=== PATIENT | female | born 1935 | race Caucasian/White ===

== ENCOUNTER 2017-09-30 17:13 | Emergency (ER) | payer MEDICARE, OTHER ==
[2017-09-30] MEDS ORDERED: Bacitracin Oint 1 GM U/D Packet TOP ONE (18:00)
--- NOTE | 2017-09-30 18:01 | EDM.PDOC ---
ED HPI GENERAL MEDICAL PROBLEM - General Chief Complaint: Laceration Stated Complaint: CUT HAND WHILE GETTING DISHES OUT OF CUPBOARD Time Seen by Provider: 09/30/17 17:55 Source of Information: Reports: Patient, Family, RN Notes Reviewed History Limitations: Reports: No Limitations - History of Present Illness INITIAL COMMENTS - FREE TEXT/NARRATIVE: 82-year-old female presents emergency department today with complaint of lacerations to both hands unfortunately she injured herself when a couple dishes broke in her hands she has lacerations on the left digit #5 and right palm Hand Pain Score (Numeric/FACES): 5 - Related Data Allergies Allergy/AdvReac Type Severity Reaction Status Date / Time No Known Allergies Allergy Verified 09/30/17 17:39 Home Meds: Home Meds Aspirin [Adult Aspirin] 81 mg PO DAILY 09/30/17 [History] Cyanocobalamin (Vitamin B-12) [Vitamin B-12] 100 mcg PO DAILY 09/30/17 [History] Doxepin HCl [Doxepin] 10 mg PO BEDTIME 09/30/17 [History] Metoprolol Succinate [Toprol XL 100mg] 100 mg PO BEDTIME 09/30/17 [History] Simvastatin [Zocor] 40 mg PO BEDTIME 09/30/17 [History] Triamterene/Hydrochlorothiazid [Triamterene-HCTZ 37.5-25 MG] 1 tab PO DAILY [History] Past Medical History HEENT History: Reports: Cataract Cardiovascular History: Reports: Heart Murmur, High Cholesterol, Hypertension Gastrointestinal History: Reports: Cholelithiasis Genitourinary History: Reports: Other (See Below) Other Genitourinary History: urethitis [employer]ENTICE History: Reports: Psychiatric History: Reports: Other (See Below) Other Psychiatric History: stress - Past Surgical History HEENT Surgical History: Reports: Cataract Surgery GI Surgical History: Reports: Cholecystectomy Female Surgical History: Reports: Tubal Ligation Social & Family History - Tobacco Use Smoking Status *Q: Never Smoker - Caffeine Use Caffeine Use: Reports: Coffee - Recreational Drug Use Recreational Drug Use: No ED ROS GENERAL - Review of Systems Review Of Systems: See Below Constitutional: Reports: No Symptoms Musculoskeletal: Reports: No Symptoms Skin: Reports: Wound Neurological: Reports: Numbness (Digit #2 right hand) ED EXAM, SKIN/RASH Exam: See Below Text/Narrative:: Examination hands full range of motion of all digits radial pulses +2 bilaterally she has a 1.5 cm laceration palmar surface on the right hand, there is a half centimeter laceration on digit #5 palmar surface over the proximal phalange area sensation is intact, complains of numbness digit #2 right hand however a sensation appears to be normal Exam Limited By: No Limitations General Appearance: Alert, WD/WN, No Apparent Distress ED SKIN PROCEDURES - Laceration/Wound Repair Hand Lac/Wound length In cm: 1 (Left hand) Appearance: Subcutaneous Distal NVT: Neuro & Vascular Intact, No Tendon Injury Anesthetic Type: Digital Local Anesthesia - Lidocaine (Xylocaine): 1% Plain Local Anesthetic Volume: 2cc Skin Prep: Saline Saline Irrigation (cc's): 60 Exploration/Debridement/Repair: Wound Explored, In a Bloodless Field, Explored to Base Closed with: Sutures Suture Size: 4-0 # of Sutures: 1 Suture Type: Interrupted Sterile Dressing Applied: Nurse Tetanus Status Addressed: Yes Complications: No Right Hand Lac/Wound length In cm: 2 Appearance: Subcutaneous Distal NVT: Neuro & Vascular Intact, No Tendon Injury Anesthetic Type: Local Local Anesthesia - Lidocaine (Xylocaine): 1% Plain Local Anesthetic Volume: 2cc Skin Prep: Saline Saline Irrigation (cc's): 60 Exploration/Debridement/Repair: Wound Explored, In a Bloodless Field, Explored to Base Closed with: Sutures Suture Size: 4-0 # of Sutures: 3 Suture Type: Nylon, Interrupted Suture Size: 4-0 # of Sutures: 2 Repaired with: Vicryl Sterile Dressing Applied: Nurse Tetanus Status Addressed: Yes Complications: No Course - Vital Signs Last Recorded V/S: Last Vital Signs Temp 97.1 F 09/30/17 17:37 Pulse 52 L 09/30/17 17:37 Resp 15 09/30/17 17:37 BP 170/72 H 09/30/17 17:34 Pulse Ox 94 L 09/30/17 17:37 - Orders/Labs/Meds Orders: Active Orders 24 hr Category Date Time Status Hand 2V Rt [CR] Stat Exams 09/30/17 17:59 Taken Meds: Medications Discontinued Medications Generic Name Dose Route Start Last Admin Trade Name Freq PRN Reason Stop Dose Admin Bacitracin 2 dose 09/30/17 18:00 09/30/17 18:16 Bacitracin Oint 1 Gm TOP 09/30/17 18:01 2 dose ONETIME ONE Administration Lidocaine HCl 5 ml 09/30/17 18:00 09/30/17 18:17 Xylocaine-Mpf 1% INJECT 09/30/17 18:01 5 ml ONETIME ONE Administration Departure - Departure Time of Disposition: 19:12 Disposition: Home, Self-Care 01 Condition: Good Clinical Impression: Hand laceration Qualifiers: Encounter type: initial encounter Foreign body presence: without foreign body Laterality: unspecified laterality Qualified Code(s): S61.419A - Laceration without foreign body of unspecified hand, initial encounter - Discharge Information Referrals: Sophia Colon MD [Primary Care Provider] - Forms: ED Department Discharge Additional Instructions: Suture removal in 10 days, follow wound care instruction sheet, call return to the emergency department worsening of symptoms - My Orders Last 24 Hours: My Active Orders 09/30/17 17:59 Hand 2V Rt [CR] Stat - Assessment/Plan Last 24 Hours: My Active Orders 09/30/17 17:59 Hand 2V Rt [CR] Stat Plan: Assessment Acuity = acute Site and laterality = multiple lacerations on palmar surface of right and left hand Etiology = secondary trauma Manifestations = none Location of injury = Home Lab values = right hand x-rayI did review films myself I cannot appreciate any acute process, the official read from radiology is pending Plan Suture removal in 10 days, follow up with primary care for suture removal follow wound care instruction sheet This note was dictated using [employer] voice recognition software please call with any questions on syntax or grammar.
--- NOTE | 2017-10-01 08:40 | CR ---
Hand 2V Rt CLINICAL HISTORY: Possible foreign body FINDINGS: There is no acute fracture or dislocation of the hand. There is soft tissue swelling of the index finger. No radiopaque foreign body is seen. 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 Impression: Soft tissue swelling No radiopaque foreign body
== END 2017-09-30 19:33 | disposition home or self-care (01) ==
LOC: JP.ED 17:13
DX: S61.411A Laceration without foreign body of right hand, initial encounter (principal); S61.412A Laceration without foreign body of left hand, initial encounter; I10 Essential (primary) hypertension; Z79.82 Long term (current) use of aspirin; W26.9XXA Contact with unspecified sharp object(s), initial encounter
CPT/HCPCS: 12002; 73120-26-RT; 73120-RT; 99283-25

== ENCOUNTER 2018-04-03 14:50 | Emergency (ER) | payer MEDICARE, OTHER ==
[2018-04-03] MEDS ORDERED: Metoprolol Tartrate 5 MG/5 ML SDV IVPUSH ONE ×3 (15:02→15:33)
[2018-04-03] MEDS ORDERED: Aspirin 81 MG Tab.Chew PO ONE (15:04)
[2018-04-03] MEDS: Sodium Chloride 0.9% 10 ML Syringe FLUSH PRN ×2 (15:19→15:20)
[2018-04-03] MEDS ORDERED: Potassium Chloride 20 MEQ in Premix Bag 1 BAG IV ONE (15:35)
[2018-04-03] MEDS ORDERED: Potassium Chloride 10% 20 MEQ/15 ML Soln 15 ML UD Cup PO ONE (15:36)
[2018-04-03] MEDS ORDERED: Metoprolol Tartrate 50 MG Tab PO ONE (15:55)
[2018-04-03] MEDS ORDERED: Potassium Chloride 20 MEQ, Lidocaine 1% 2 ML in Sodium Chloride 0.9% 100 ML IV ONE (16:00)
--- NOTE | 2018-04-03 17:43 | EDM.PDOC ---
ED HPI GENERAL MEDICAL PROBLEM - General Chief Complaint: Chest Pain Stated Complaint: CHEST PAINS Time Seen by Provider: 04/03/18 15:03 Source of Information: Reports: Patient History Limitations: Reports: No Limitations - History of Present Illness INITIAL COMMENTS - FREE TEXT/NARRATIVE: This lady complains of chest pain for 45 minutes. Initially her pain was 7-1/2- 8 out of 10. Now it's much less but she describes it as" bad enough"she denies history of atrial fibrillation but does feel that her heart is racing. She has hypertension denies diabetes. There is some heart disease in her family including sister and mother. She had 2 brothers of cancer. She describes the pain as sort of a vague dull heaviness on her chest sort of like her small cat laying on her chest. Mid-Sternal Chest Pain Score (Numeric/FACES): 7 - Related Data Allergies Allergy/AdvReac Type Severity Reaction Status Date / Time No Known Allergies Allergy Verified 09/30/17 17:39 Home Meds: Home Meds Aspirin [Adult Aspirin] 81 mg PO DAILY 09/30/17 [History] Cyanocobalamin (Vitamin B-12) [Vitamin B-12] 100 mcg PO DAILY 09/30/17 [History] Doxepin HCl [Doxepin] 10 mg PO BEDTIME 09/30/17 [History] Metoprolol Succinate [Toprol XL 100mg] 100 mg PO BEDTIME 09/30/17 [History] Simvastatin [Zocor] 40 mg PO BEDTIME 09/30/17 [History] Triamterene/Hydrochlorothiazid [Triamterene-HCTZ 37.5-25 MG] 1 tab PO DAILY [History] Past Medical History HEENT History: Reports: Cataract Cardiovascular History: Reports: Heart Murmur, High Cholesterol, Hypertension Gastrointestinal History: Reports: Cholelithiasis Genitourinary History: Reports: Other (See Below) Other Genitourinary History: urethitis [employer] LEAD History: Reports: Psychiatric History: Reports: Other (See Below) Other Psychiatric History: stress - Infectious Disease History Infectious Disease History: Reports: Chicken Pox, Measles, Mumps - Past Surgical History HEENT Surgical History: Reports: Cataract Surgery GI Surgical History: Reports: Cholecystectomy Female Surgical History: Reports: Tubal Ligation Social & Family History - Tobacco Use Smoking Status *Q: Never Smoker - Caffeine Use Caffeine Use: Reports: Coffee - Recreational Drug Use Recreational Drug Use: No ED ROS GENERAL - Review of Systems Review Of Systems: See Below Constitutional: Reports: No Symptoms HEENT: Reports: No Symptoms Respiratory: Reports: No Symptoms Cardiovascular: Reports: Chest Pain, Palpitations Endocrine: Reports: No Symptoms GI/Abdominal: Reports: No Symptoms : Reports: No Symptoms Musculoskeletal: Reports: No Symptoms Skin: Reports: No Symptoms ED EXAM, GENERAL - Physical Exam Exam: See Below Exam Limited By: No Limitations General Appearance: Alert, WD/WN, No Apparent Distress Eye Exam: Bilateral Eye: Normal Inspection Throat/Mouth: Normal Inspection Neck: Normal Inspection Respiratory/Chest: No Respiratory Distress, Lungs Clear Cardiovascular: Normal Peripheral Pulses, Tachycardia, Irregularly Irregular Peripheral Pulses: 2+: Radial (L), Radial (R) GI/Abdominal: Non-Tender Extremities: Normal Inspection Neurological: Alert, Oriented, CN II-XII Intact, Normal Cognition Psychiatric: Normal Affect, Normal Mood Skin Exam: Warm, Intact Course - Vital Signs Last Recorded V/S: Last Vital Signs Temp 36.4 C 04/03/18 15:20 Pulse 54 L 04/03/18 18:12 Resp 18 04/03/18 18:12 BP 134/52 L 04/03/18 18:12 Pulse Ox 98 04/03/18 18:12 - Orders/Labs/Meds Orders: Active Orders 24 hr Category Date Time Status EKG Documentation Completion [RC] ASDIRECTED Care 04/03/18 15:04 Active EKG Documentation Completion [RC] ASDIRECTED Care 04/03/18 16:32 Active Sodium Chloride 0.9% [Saline Flush] Med 04/03/18 15:04 Active 10 ml FLUSH ASDIRECTED PRN Saline Lock Insert [OM.PC] Urgent Oth 04/03/18 15:04 Ordered EKG 12 Lead [EK] Urgent Ther 04/03/18 15:04 Ordered EKG 12 Lead [EK] Urgent Ther 04/03/18 16:32 Ordered Medication Orders Sodium Chloride (Saline Flush) 10 ml FLUSH ASDIRECTED PRN PRN Reason: Keep Vein Open Last Admin: 04/03/18 15:20 Dose: 10 ml Admin: 04/03/18 15:19 Dose: 10 ml Labs: Laboratory Tests 04/03/18 04/03/1804/03/19 Range/Units 15:09 15:09 15:09 WBC 8.4 (4.5-11.0) K/uL RBC 4.65 (3.30-5.50) M/uL Hgb 15.5 H (12.0-15.0) g/dL Hct 44.6 (36.0-48.0) % MCV 96 (80-98) fL MCH 33 H (27-31) pg MCHC 35 (32-36) % Plt Count 181 (150-400) K/uL Neut % (Auto) 61 (36-66) % Lymph % (Auto) 26 (24-44) % [place] % (Auto) 9 H (2-6) % Eos % (Auto) 4 (2-4) % Baso % (Auto) 1 (0-1) % PT 10.1 (9.5-12.0) sec INR 0.91 (0.80-1.20) Sodium 133 L (140-148) mmol/L Potassium 2.9 L* (3.6-5.2) mmol/L Chloride 93 L (100-108) mmol/L Carbon Dioxide 30 (21-32) mmol/L Anion Gap 12.9 (5.0-14.0) mmol/L BUN 16 (7-18) mg/dL Creatinine 1.0 (0.6-1.0) mg/dL Est Cr Clr Drug Dosing 43.63 mL/min Estimated GFR (MDRD) 53 L (>60) Glucose 106 (74-106) mg/dL Calcium 9.4 (8.5-10.1) mg/dL Total Bilirubin 0.9 (0.2-1.0) mg/dL AST 31 (15-37) U/L ALT 32 (12-78) U/L Alkaline Phosphatase 76 (46-116) U/L Troponin I < 0.017 (0.000-0.056) ng/mL Total Protein 7.8 (6.4-8.2) g/dL Albumin 4.1 (3.4-5.0) g/dL Globulin 3.7 H (2.3-3.5) g/dL Albumin/Globulin Ratio 1.1 L (1.2-2.2) Free T4 (0.76-1.46) ng/dL TSH, Ultra Sensitive (0.358-3.740) uIU/mL 04/03/18 04/03/18 Range/Units 17:43 17:56 WBC (4.5-11.0) K/uL RBC (3.30-5.50) M/uL Hgb (12.0-15.0) g/dL Hct (36.0-48.0) % MCV (80-98) fL MCH (27-31) pg MCHC (32-36) % Plt Count (150-400) K/uL Neut % (Auto) (36-66) % Lymph % (Auto) (24-44) % [place] % (Auto) (2-6) % Eos % (Auto) (2-4) % Baso % (Auto) (0-1) % PT (9.5-12.0) sec INR (0.80-1.20) Sodium (140-148) mmol/L Potassium 3.9 (3.6-5.2) mmol/L Chloride (100-108) mmol/L Carbon Dioxide (21-32) mmol/L Anion Gap (5.0-14.0) mmol/L BUN (7-18) mg/dL Creatinine (0.6-1.0) mg/dL Est Cr Clr Drug Dosing mL/min Estimated GFR (MDRD) (>60) Glucose (74-106) mg/dL Calcium (8.5-10.1) mg/dL Total Bilirubin (0.2-1.0) mg/dL AST (15-37) U/L ALT (12-78) U/L Alkaline Phosphatase (46-116) U/L Troponin I < 0.017 (0.000-0.056) ng/mL Total Protein (6.4-8.2) g/dL Albumin (3.4-5.0) g/dL Globulin (2.3-3.5) g/dL Albumin/Globulin Ratio (1.2-2.2) Free T4 1.08 (0.76-1.46) ng/dL TSH, Ultra Sensitive 2.336 (0.358-3.740) uIU/mL Meds: Medications Generic Name Dose Route Start Last Admin Trade Name Freq PRN Reason Stop Dose Admin Sodium Chloride 10 ml 04/03/18 15:04 04/03/18 15:20 Saline Flush FLUSH 10 ml ASDIRECTED PRN Administration Keep Vein Open Discontinued Medications Generic Name Dose Route Start Last Admin Trade Name Amando PRN Reason Stop Dose Admin Aspirin 324 mg 04/03/18 15:04 04/03/18 15:13 Aspirin PO 04/03/18 15:05 324 mg ONETIME ONE Administration Potassium Chloride 20 meq/ 112 mls @ 56 mls/hr 04/03/18 16:00 04/03/18 15:59 Lidocaine HCl 2 ml/ Sodium IV 04/03/18 17:59 56 mls/hr Chloride ONETIME ONE Administration Metoprolol Tartrate 5 mg 04/03/18 15:02 04/03/18 15:06 Lopressor IVPUSH 04/03/18 15:03 5 mg ONETIME ONE Administration Metoprolol Tartrate 5 mg 04/03/18 15:05 04/03/18 15:19 Lopressor IVPUSH 04/03/18 15:06 5 mg ONETIME ONE Administration Metoprolol Tartrate 5 mg 04/03/18 15:33 04/03/18 15:43 Lopressor IVPUSH 04/03/18 15:34 5 mg ONETIME ONE Administration Metoprolol Tartrate 50 mg 04/03/18 15:55 04/03/18 15:59 Lopressor PO 04/03/18 15:56 50 mg ONETIME ONE Administration Potassium Chloride 40 meq 04/03/18 15:36 04/03/18 16:02 Potassium Chloride Solution PO 04/03/18 15:37 40 meq ONETIME ONE Administration - Re-Assessments/Exams Free Text/Narrative Re-Assessment/Exam: 04/03/18 17:45 Initial EKG shows atrial fibrillation with rapid ventricular response. There appears to be ST depression in lateral leads 1-2 mm. LVH criteria At the time I saw her an IV started been established. Her pain is fairly mild at that time and she is otherwise hemodynamically stable. We don't know how long she's been in atrial fibrillation so I don't think there is any indication for a cardioversion. She's already taking metoprolol so she was given metoprolol 5 mg IV 3. This brought the heart rate down to approximately 100- 110. She received metoprolol 50 mg orally. After about an hour or so she converted to a sinus rhythm. The ST changes appeared to have mostly resolved. Potassium came back 2.9. She was given 40 mEq orally and then she received 20 mEq IV over 2 hours. We will do a three-hour troponin to be drawn at 1800 as well as repeat potassium. Also ordered TSH and T4. Free Text/Narrative Re-Assessment/Exam: 04/03/18 19:09 Patient is now back in sinus rhythm running in the 50s and 60s. She has a chads score of 4 which correlates to a 4% yearly risk of a thromboembolic event if she had continuous atrial fibrillation. I discussed this with her as and also the risk of anticoagulation in the bleeds and so forth and I don't think that there is any need right now to even consider anticoagulation. She'll need to follow-up with her doctor soon we discussed potassium and whether or not she needs any more heart workup for ischemia and so forth. She does say that about 10 years ago she had some extensive cardiac workup after she had a syncopal episode. Departure - Departure Time of Disposition: 19:10 Disposition: Home, Self-Care 01 Condition: Fair Clinical Impression: Atrial fibrillation with rapid ventricular response, Chest pain, Hypokalemia Referrals: PCP,None [Primary Care Provider] - Forms: ED Department Discharge Additional Instructions: Increase your metoprolol XL to 100 mg in the morning and 50 mg at night. You already had the dose for tonight. Your potassium is low which might have caused the atrial fibrillation. Take about 1/2 teaspoon of salt substitute daily this is the same potassium chloride which is found in medications. Be sure your doctor knows you're taking this. Plan to see your DrAnne Marie soon and bring all your labs and EKGs. Return to the ER at any time if you notice any racing heartbeat, sustained rapid heartbeat or chest pain. - My Orders Last 24 Hours: My Active Orders 04/03/18 15:04 EKG Documentation Completion [RC] ASDIRECTED Sodium Chloride 0.9% [Saline Flush] 10 ml FLUSH ASDIRECTED PRN Saline Lock Insert [OM.PC] Urgent EKG 12 Lead [EK] Urgent 04/03/18 16:32 EKG Documentation Completion [RC] ASDIRECTED EKG 12 Lead [EK] Urgent - Assessment/Plan Last 24 Hours: My Active Orders 04/03/18 15:04 EKG Documentation Completion [RC] ASDIRECTED Sodium Chloride 0.9% [Saline Flush] 10 ml FLUSH ASDIRECTED PRN Saline Lock Insert [OM.PC] Urgent EKG 12 Lead [EK] Urgent 04/03/18 16:32 EKG Documentation Completion [RC] ASDIRECTED EKG 12 Lead [EK] Urgent
== END 2018-04-03 19:24 | disposition home or self-care (01) ==
LOC: JP.ED 14:50
DX: I48.91 Unspecified atrial fibrillation (principal); R07.9 Chest pain, unspecified; E87.6 Hypokalemia; E78.00 Pure hypercholesterolemia, unspecified; I10 Essential (primary) hypertension; Z79.82 Long term (current) use of aspirin; Z79.899 Other long term (current) drug therapy
CPT/HCPCS: 36415; 80053; 84132; 84439; 84443; 84484; 85025; 85610; 93005; 96365; 96366; 96375; 96376; 99285; A9270; J3480; J3490; J7030

== ENCOUNTER 2018-12-16 01:23 | Emergency (ER) | payer MEDICARE ==
[2018-12-16] MEDS ORDERED: Metoprolol Tartrate 50 MG Tab PO ONE (01:47)
--- NOTE | 2018-12-16 01:58 | EDM.PDOC ---
ED HPI GENERAL MEDICAL PROBLEM - General Chief Complaint: Chest Pain Stated Complaint: A-FIB Time Seen by Provider: 12/16/18 01:45 Source of Information: Reports: Patient, Old Records, RN History Limitations: Reports: No Limitations - History of Present Illness INITIAL COMMENTS - FREE TEXT/NARRATIVE: 83 yo female with a pHx of known afib awoke just after 1 am tonight with a rapid HR and some chest tightness/pressure. The pressure is mostly gone now in the ER. Has not missed any doses of her metoprolol lately. Has no nausea, diaphoresis or SOB. Here with her via car. Onset: Today Onset Date: 12/16/18 Onset Time: 01:00 Duration: Hour(s): (2), Constant, Improving Location: Reports: Chest Quality: Reports: Pressure Severity: Mild Improves with: Reports: Other (time? ) Worsens with: Reports: Other (unknown) Context: Reports: Other (see HPI) Associated Symptoms: Reports: Chest Pain (mild pressure). Denies: Diaphoresis, Fever/Chills, Nausea/Vomiting, Shortness of Breath Treatments [employer]IVER: Reports: Other (see below) (none) Chest Pain Score (Numeric/FACES): 0 - Related Data Allergies Allergy/AdvReac Type Severity Reaction Status Date / Time No Known Allergies Allergy Verified 12/16/18 01:30 Home Meds: Home Meds Cyanocobalamin (Vitamin B-12) [Vitamin B-12] 100 mcg PO DAILY 09/30/17 [History] Metoprolol Succinate [Toprol XL 100mg] 100 mg PO BEDTIME 09/30/17 [History] Simvastatin [Zocor] 40 mg PO BEDTIME 09/30/17 [History] Triamterene/Hydrochlorothiazid [Triamterene-HCTZ 37.5-25 MG] 1 tab PO DAILY [History] Apixaban [Eliquis] 5 mg PO DAILY 12/16/18 [History] Ciprofloxacin HCl [Cipro] 500 mg PO BID 12/16/18 [History] Potassium Chloride 10 meq PO TID #14 cap.er 12/16/18 [Rx] traZODone HCl [Trazodone HCl] 50 mg PO DAILY 12/16/18 [History] Past Medical History HEENT History: Reports: Cataract, Impaired Vision Cardiovascular History: Reports: Afib, Heart Murmur, High Cholesterol, Hypertension Gastrointestinal History: Reports: Cholelithiasis Genitourinary History: Reports: Other (See Below) Other Genitourinary History: urethitis 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: Psychiatric History: Reports: Other (See Below) Other Psychiatric History: stress Hematologic History: Reports: Anticoagulation Therapy - Infectious Disease History Infectious Disease History: Reports: Chicken Pox, Measles, Mumps - Past Surgical History Head Surgeries/Procedures: Reports: None HEENT Surgical History: Reports: Cataract Surgery Cardiovascular Surgical History: Reports: None GI Surgical History: Reports: Cholecystectomy Female Surgical History: Reports: Tubal Ligation Dermatological Surgical History: Reports: None Social & Family History - Tobacco Use Smoking Status *Q: Never Smoker Second Hand Smoke Exposure: No - Caffeine Use Caffeine Use: Reports: Coffee - Recreational Drug Use Recreational Drug Use: No ED ROS GENERAL - Review of Systems Review Of Systems: See Below Constitutional: Reports: No Symptoms HEENT: Reports: No Symptoms, Vertigo Cardiovascular: Reports: Chest Pain (mild pressure now, was more severe earlier at home.), Palpitations. Denies: Dyspnea on Exertion, Edema, Lightheadedness, Orthopnea, Syncope Endocrine: Reports: No Symptoms GI/Abdominal: Reports: No Symptoms : Reports: No Symptoms Musculoskeletal: Reports: No Symptoms Skin: Reports: No Symptoms Neurological: Reports: No Symptoms Psychiatric: Reports: No Symptoms ED EXAM, GENERAL - Physical Exam Exam: See Below Exam Limited By: No Limitations General Appearance: Alert, WD/WN, No Apparent Distress Eye Exam: Bilateral Eye: Normal Inspection Ears: Normal External Exam, Normal Canal, Hearing Grossly Normal Ear Exam: Bilateral Ear: Auricle Normal, Canal Normal Nose: Normal Inspection, No Blood Throat/Mouth: Normal Inspection, Normal Lips, Normal Oropharynx, Normal Voice, No Airway Compromise Head: Atraumatic, Normocephalic Neck: Normal Inspection Respiratory/Chest: No Respiratory Distress, Lungs Clear, Normal Breath Sounds, No Accessory Muscle Use Cardiovascular: No Edema, Tachycardia, Irregularly Irregular GI/Abdominal: Normal Bowel Sounds, Soft, Non-Tender, No Distention Back Exam: Normal Inspection Extremities: Normal Inspection, Normal Range of Motion, Non-Tender, No Pedal Edema Neurological: Alert, Oriented, CN II-XII Intact, Normal Cognition, No Motor/ Sensory Deficits Psychiatric: Normal Affect, Normal Mood Skin Exam: Warm, Dry, Intact, Normal Color, No Rash EKG INTERPRETATION EKG Date: 12/16/18 Time: 01:25 Rhythm: A-Flutter Rate (Beats/Min): 120 [place]: Normal P-Wave: Present QRS: Normal ST-T: Normal QT: Normal Comparison: Change From Previous EKG (aflutter has replaced NSR, rate increased) Course - Vital Signs Text/Narrative:: Converted to NSR during her ER stay with a rate of about 60/min. Last Recorded V/S: Last Vital Signs Temp 35.4 C 12/16/18 01:35 Pulse 61 12/16/18 02:42 Resp 19 12/16/18 02:42 BP 117/63 12/16/18 02:42 Pulse Ox 93 L 12/16/18 02:42 - Orders/Labs/Meds Orders: Active Orders 24 hr Category Date Time Status Cardiac Monitoring [RC] .As Directed Care 12/16/18 01:47 Active EKG Documentation Completion [RC] ASDIRECTED Care 12/16/18 02:24 Active Potassium Chloride [KCL 20 MEQ in Water 100 ML] 20 meq Med 12/16/18 02:00 Active Premix Bag 1 bag IV ONETIME Sodium Chloride 0.9% [Normal Saline] 1,000 ml Med 12/16/18 02:30 Active IV ASDIRECTED EKG 12 Lead [EK] Routine Ther 12/16/18 02:24 Ordered Medication Orders Potassium Chloride 20 meq/ (Premix) 100 mls @ 50 mls/hr IV ONETIME ONE Stop: 12/16/18 03:59 Last Admin: 12/16/18 02:09 Dose: 50 mls/hr Sodium Chloride (Normal Saline) 1,000 mls @ 200 mls/hr IV ASDIRECTED [facility] Last Admin: 12/16/18 02:31 Dose: 200 mls/hr Labs: Laboratory Tests 12/16/18 12/16/18 12/16/18 Range/Units 01:50 01:50 01:50 Sodium 132 L (140-148) mmol/L Potassium 2.8 L* (3.6-5.2) mmol/L Chloride 93 L (100-108) mmol/L Carbon Dioxide 29 (21-32) mmol/L Anion Gap 12.8 (5.0-14.0) mmol/L BUN 13 (7-18) mg/dL Creatinine 0.8 (0.6-1.0) mg/dL Est Cr Clr Drug Dosing 53.63 mL/min Estimated GFR (MDRD) > 60 (>60) Glucose 114 H (74-106) mg/dL Calcium 8.6 (8.5-10.1) mg/dL Magnesium 1.7 L (1.8-2.4) mg/dL Troponin I < 0.017 (0.000-0.056) ng/mL Meds: Medications Generic Name Dose Route Start Last Admin Trade Name Freq PRN Reason Stop Dose Admin Potassium Chloride 20 meq/ 100 mls @ 50 mls/hr 12/16/18 02:00 12/16/18 02:09 Premix IV 12/16/18 03:59 50 mls/hr ONETIME ONE Administration Sodium Chloride 1,000 mls @ 200 mls/hr 12/16/18 02:30 12/16/18 02:31 Normal Saline IV 200 mls/hr ASDIRECTED KIRILL Administration Discontinued Medications Generic Name Dose Route Start Last Admin Trade Name Freq PRN Reason Stop Dose Admin Magnesium Oxide 800 mg 12/16/18 02:23 12/16/18 02:30 Magnesium Oxide PO 12/16/18 02:24 800 mg ONETIME ONE Administration Metoprolol Tartrate 50 mg 12/16/18 01:47 12/16/18 01:53 Lopressor PO 12/16/18 01:48 50 mg ONETIME ONE Administration Potassium Chloride 40 meq 12/16/18 02:01 12/16/18 02:06 Potassium Chloride PO 12/16/18 02:02 40 meq ONETIME ONE Administration Departure - Departure Time of Disposition: 04:10 Disposition: Home, Self-Care 01 Condition: Fair Clinical Impression: Paroxysmal atrial fibrillation with RVR, Hypokalemia Instructions: Hypokalemia Referrals: PCP,None [Primary Care Provider] - Forms: ED Department Discharge Additional Instructions: Take potassium as directed until gone. Try to increase potassium in your diet. Recheck in the clinic within the week. Return as needed. - My Orders Last 24 Hours: My Active Orders 12/16/18 01:47 Cardiac Monitoring [RC] .As Directed 12/16/18 02:00 Potassium Chloride [KCL 20 MEQ in Water 100 ML] 20 meq Premix Bag 1 bag IV ONETIME 12/16/18 02:24 EKG Documentation Completion [RC] ASDIRECTED EKG 12 Lead [EK] Routine 12/16/18 02:30 Sodium Chloride 0.9% [Normal Saline] 1,000 ml IV ASDIRECTED - Assessment/Plan Last 24 Hours: My Active Orders 12/16/18 01:47 Cardiac Monitoring [RC] .As Directed 12/16/18 02:00 Potassium Chloride [KCL 20 MEQ in Water 100 ML] 20 meq Premix Bag 1 bag IV ONETIME 12/16/18 02:24 EKG Documentation Completion [RC] ASDIRECTED EKG 12 Lead [EK] Routine 12/16/18 02:30 Sodium Chloride 0.9% [Normal Saline] 1,000 ml IV ASDIRECTED
[2018-12-16] MEDS ORDERED: Potassium Chloride 20 MEQ in Premix Bag 1 BAG IV ONE (02:00)
[2018-12-16] MEDS ORDERED: Potassium Chloride 10 MEQ Cap.ER PO ONE (02:01)
[2018-12-16] MEDS ORDERED: Magnesium Oxide 400 MG Tab PO ONE (02:23)
[2018-12-16] MEDS ORDERED: Sodium Chloride 0.9% 1,000 ML IV SCH (02:30)
== END 2018-12-16 04:06 | disposition home or self-care (01) ==
LOC: JP.ED 01:23
DX: I48.0 Paroxysmal atrial fibrillation (principal); E87.6 Hypokalemia; E78.00 Pure hypercholesterolemia, unspecified; I48.91 Unspecified atrial fibrillation; I10 Essential (primary) hypertension; Z79.899 Other long term (current) drug therapy; Z79.01 Long term (current) use of anticoagulants
CPT/HCPCS: 36415; 80048; 83735; 84484; 93005; 93010; 96365; 96366; 99284; 99285-25; A9270-GY; J3480; J7030

== ENCOUNTER 2020-09-22 20:59 | Inpatient (IN) | payer MEDICARE ==
[2020-09-22] MEDS ORDERED: Metoprolol Tartrate 5 MG in Sodium Chloride 0.9% 50 ML IV ONE (21:36)
--- NOTE | 2020-09-22 21:42 | EDM.PDOC ---
ED HPI GENERAL MEDICAL PROBLEM - General Chief Complaint: Cardiovascular Problem Stated Complaint: FAST HEART RATE Time Seen by Provider: 09/22/20 21:30 Source of Information: Reports: Patient, Family History Limitations: Reports: No Limitations - History of Present Illness INITIAL COMMENTS - FREE TEXT/NARRATIVE: This is a 85 year old female with a history of a fib with RVR presenting with chest pressure and heart racing. Patient reports that she was walking in her home around 8:00 pm when she suddenly didn't feel quite right and felt like her heart was beating fast. This was associated with some mild chest discomfort described as a pressure. She reports a history of a fib with RVR that felt similar in nature. She denies associated shortness of breath. She denies any fev er, chills, cough, abdominal pain, nausea, vomiting, or diarrhea. She is on metoprolol and Eliquis and reports she took both of those after this episode started. Middle Chest Pain Score (Numeric/FACES): 2 - Related Data Allergies Allergy/AdvReac Type Severity Reaction Status Date / Time Sulfa (Sulfonamide Allergy Stomach Verified 09/22/20 21:27 Antibiotics) Ache Home Meds: Home Meds Metoprolol Succinate [Toprol XL 100mg] 100 mg PO BEDTIME 09/30/17 [History] Apixaban [Eliquis] 5 mg PO DAILY 12/16/18 [History] traZODone HCl [Trazodone HCl] 50 mg PO DAILY 12/16/18 [History] Calcium Carbonate [Oyster Shell Calcium] 500 mg PO DAILY 09/22/20 [History] Melatonin 10 mg PO BEDTIME 09/22/20 [History] Omeprazole 20 mg PO DAILY 09/22/20 [History] estradioL [Estrace 0.01% Vaginal Crm] 1 dose VAG ASDIRECTED 09/22/20 [History] Past Medical History HEENT History: Reports: Cataract, Impaired Vision Cardiovascular History: Reports: Afib, Heart Murmur, High Cholesterol, Hypertension Gastrointestinal History: Reports: Cholelithiasis Genitourinary History: Reports: Other (See Below) Other Genitourinary History: urethitis 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: Psychiatric History: Reports: Other (See Below) Other Psychiatric History: stress Hematologic History: Reports: Anticoagulation Therapy - Infectious Disease History Infectious Disease History: Reports: Chicken Pox, Measles, Mumps - Past Surgical History Head Surgeries/Procedures: Reports: None HEENT Surgical History: Reports: Cataract Surgery Cardiovascular Surgical History: Reports: None GI Surgical History: Reports: Cholecystectomy Female Surgical History: Reports: Tubal Ligation Dermatological Surgical History: Reports: None Social & Family History - Tobacco Use Tobacco Use Status *Q: Never Tobacco User - Caffeine Use Caffeine Use: Reports: Coffee - Recreational Drug Use Recreational Drug Use: No ED ROS GENERAL - Review of Systems Review Of Systems: Comprehensive ROS is negative, except as noted in HPI. ED EXAM, GENERAL - Physical Exam Exam: See Below Exam Limited By: No Limitations General Appearance: Alert, No Apparent Distress Ears: Hearing Grossly Normal Head: Atraumatic, Normocephalic Neck: Supple, Full Range of Motion Respiratory/Chest: No Respiratory Distress, Lungs Clear, Normal Breath Sounds Cardiovascular: No Edema, Tachycardia, Irregularly Irregular, Other (Murmur present) GI/Abdominal: Soft, Non-Tender Extremities: Normal Range of Motion, No Pedal Edema Neurological: Alert, Oriented, Normal Cognition Psychiatric: Normal Affect, Normal Mood Skin Exam: Warm, Dry #1 Interpretation Rhythm: A-Flutter Rate (Beats/Min): 123 Course - Vital Signs Last Recorded V/S: Last Vital Signs Temp 96.4 F L 09/22/20 21:37 Pulse 114 H 09/22/20 22:58 Resp 16 09/22/20 22:42 BP 161/100 H 09/22/20 22:58 Pulse Ox 97 09/22/20 22:42 - Orders/Labs/Meds Orders: Active Orders 24 hr Category Date Time Status EKG Documentation Completion [RC] ASDIRECTED Care 09/22/20 21:29 Active CXR [Chest 2V] [CR] Stat Exams 09/22/20 21:37 Taken Melatonin Med 09/23/20 21:00 Ordered 9 mg PO BEDTIME Sodium Chloride 0.9% [Normal Saline] 1,000 ml Med 09/22/20 21:45 Active IV ASDIRECTED EKG 12 Lead [EK] Stat Ther 09/22/20 21:29 Ordered Medication Orders Sodium Chloride (Normal Saline) 1,000 mls @ 1,000 mls/hr IV ASDIRECTED KIRILL Last Admin: 09/22/20 21:49 Dose: 1,000 mls/hr Documented by: KRAUCRY Melatonin (Melatonin 3 Mg Tab) 9 mg PO BEDTIME [facility] Labs: Laboratory Tests 09/22/20 09/22/20 09/22/20 Range/Units 21:53 21:53 22:17 WBC 9.6 (4.5-11.0) K/uL RBC 4.52 (3.30-5.50) M/uL Hgb 14.6 (12.0-15.0) g/dL Hct 43.5 (36.0-48.0) % MCV 96 (80-98) fL MCH 32 H (27-31) pg MCHC 34 (32-36) % Plt Count 217 (150-400) K/uL Neut % (Auto) 82.8 H (36-66) % Lymph % (Auto) 10.5 L (24-44) % [place] % (Auto) 5.9 (2-6) % Eos % (Auto) 0.6 L (2-4) % Baso % (Auto) 0.2 (0-1) % Sodium 135 L (140-148) mmol/L Potassium 3.8 (3.6-5.2) mmol/L Chloride 98 L (100-108) mmol/L Carbon Dioxide 26 (21-32) mmol/L Anion Gap 14.8 H (5.0-14.0) mmol/L BUN 15 (7-18) mg/dL Creatinine 0.9 (0.6-1.0) mg/dL Est Cr Clr Drug Dosing 46.06 mL/min Estimated GFR (MDRD) 60 (>60) Glucose 164 H (74-106) mg/dL Calcium 8.9 (8.5-10.1) mg/dL Troponin I < 0.017 (0.000-0.056) ng/mL Urine Color Yellow (YELLOW) Urine Appearance Clear (CLEAR) Urine pH 7.0 (5.0-8.0) Ur Specific [place] 1.020 (1.008-1.030) Urine Protein 100 H (NEGATIVE) mg/dL Urine Glucose (UA) Negative (NEGATIVE) mg/dL Urine Ketones Trace H (NEGATIVE) mg/dL Urine Occult Blood Trace-intact H (NEGATIVE) Urine Nitrite Negative (NEGATIVE) Urine Bilirubin Negative (NEGATIVE) Urine Urobilinogen 0.2 (0.2-1.0) EU/dL Ur Leukocyte Esterase Negative (NEGATIVE) Urine RBC 0-5 (0-5) Urine WBC 0-5 (0-5) Ur Epithelial Cells Occasional Amorphous Sediment Occasional Urine Bacteria Occasional Urine Mucus Occasional Meds: Medications Generic Name Dose Route Start Last Admin Trade Name Amando PRN Reason Stop Dose Admin Sodium Chloride 1,000 mls @ 1,000 mls/hr 09/22/20 21:45 09/22/20 21:49 Normal Saline IV 1,000 mls/hr ASDIRECTED KIRILL Administration Melatonin 9 mg 09/23/20 21:00 Melatonin 3 Mg Tab PO BEDTIME KIRILL Discontinued Medications Generic Name Dose Route Start Last Admin Trade Name Amando PRN Reason Stop Dose Admin Duloxetine HCl 20 mg 09/22/20 23:25 Duloxetine 20 Mg Cap PO 09/22/20 23:26 ONETIME ONE Metoprolol Tartrate 5 mg/ 55 mls @ 100 mls/hr 09/22/20 21:36 09/22/20 22:17 Sodium Chloride IV 09/22/20 22:08 Not Given ONETIME ONE Metoprolol Tartrate 5 mg 09/22/20 21:54 09/22/20 22:00 Metoprolol Tartrate 5 Mg/5 Ml Sdv IVPUSH 09/22/20 21:55 5 mg ONETIME ONE Administration Metoprolol Tartrate 5 mg 09/22/20 22:28 09/22/20 22:34 Metoprolol Tartrate 5 Mg/5 Ml Sdv IVPUSH 09/22/20 22:29 5 mg ONETIME ONE Administration Metoprolol Tartrate 5 mg 09/22/20 22:46 09/22/20 22:58 Metoprolol Tartrate 5 Mg/5 Ml Sdv IVPUSH 09/22/20 22:47 5 mg ONETIME ONE Administration Trazodone HCl 50 mg 09/22/20 23:26 Trazodone 50 Mg Tab PO 09/22/20 23:27 ONETIME ONE Departure - Departure Time of Disposition: 23:20 Disposition: Admitted As Inpatient 68 Clinical Impression: Atrial flutter with rapid ventricular response Referrals: Brisa Diana PA-C [Primary Care Provider] - Forms: ED Department Discharge Sepsis Event Note (ED) - Evaluation Sepsis Screening Result: No Definite Risk - Focused Exam Vital Signs: Vital Signs Temp Pulse Pulse Resp BP BP Pulse Ox 09/22/20 22:58 114 H 161/100 H 09/22/20 22:42 115 H 16 174/90 H 97 09/22/20 22:34 110 H 177/91 H 09/22/20 22:24 103 H 16 177/91 H 94 L 09/22/20 22:19 103 H 12 183/106 H 95 09/22/20 22:00 115 H 201/111 H 09/22/20 21:57 124 H 22 H 201/111 H 94 L 09/22/20 21:37 96.4 F L 119 H 21 H 212/126 H 96 09/22/20 21:36 21 H 96 - Problem List Review Problem List Initiated/Reviewed/Updated: Yes - My Orders Last 24 Hours: My Active Orders 09/22/20 21:29 EKG Documentation Completion [RC] ASDIRECTED EKG 12 Lead [EK] Stat 09/22/20 21:37 CXR [Chest 2V] [CR] Stat 09/22/20 21:45 Sodium Chloride 0.9% [Normal Saline] 1,000 ml IV ASDIRECTED 09/23/20 21:00 Melatonin 9 mg PO BEDTIME - Assessment/Plan Last 24 Hours: My Active Orders 09/22/20 21:29 EKG Documentation Completion [RC] ASDIRECTED EKG 12 Lead [EK] Stat 09/22/20 21:37 CXR [Chest 2V] [CR] Stat 09/22/20 21:45 Sodium Chloride 0.9% [Normal Saline] 1,000 ml IV ASDIRECTED 09/23/20 21:00 Melatonin 9 mg PO BEDTIME Assessment:: This is a 85 year old female presenting with heart racing and chest pressure. She has a history of a fib with RVR and is on metoprolol and eliquis. HR on arrival is ranging from 110's to 120's. She is quite hypertensive on arrival. EKG showed a flutter, similar to most recent EKG. Labs were unremarkable aside from a slightly low sodium, which appears baseline when looking at previous labs. Troponin is negative. CXR does not reveal any evidence of pneumonia or pul monary edema. Patient was treated with IVF and IV metoprolol 5 mg x 3 doses. On reassessment, her BP has improved, but her HR is still in the 100's to 110's at rest and up to 120's to 130's with activity. Therefore, I think she requires admission for further attempt at rate control. I discussed the patient with Dr. Adan with plan to admit the patient for continued management.
[2020-09-22] MEDS ORDERED: Sodium Chloride 0.9% 1,000 ML IV SCH (21:45)
[2020-09-22] MEDS ORDERED: Metoprolol Tartrate 5 MG/5 ML SDV IVPUSH ONE ×3 (21:54→22:46)
[2020-09-22] MEDS ORDERED: DULoxetine 20 MG Cap PO ONE (23:25)
[2020-09-22] MEDS ORDERED: traZODone 50 MG Tab PO ONE (23:26)
[2020-09-22] MEDS ORDERED: Promethazine 6.25 MG in Sodium Chloride 0.9% 50 ML IV PRN (23:52)
[2020-09-22] MEDS ORDERED: Albuterol/Ipratropium 3.0-0.5 MG/3 ML Neb Soln NEB PRN (23:52)
[2020-09-22] MEDS ORDERED: Promethazine 25 MG Tab PO PRN (23:52)
[2020-09-22] MEDS ORDERED: Acetaminophen/HYDROcodone 325-5 MG Tab PO PRN (23:52)
[2020-09-22] MEDS ORDERED: Morphine 2 MG/ML SYRINGE IVPUSH PRN (23:52)
[2020-09-22] MEDS ORDERED: Diltiazem 25 MG/5 ML SDV IVPUSH ONE (23:57)
[2020-09-23] MEDS ORDERED: traZODone 50 MG Tab PO PRN (00:04)
--- NOTE | 2020-09-23 00:09 | PCM.HP.2 ---
H&P History of Present Illness - General Date of Service: 09/22/20 Admit Problem/Dx: Admission Diagnosis/Problem Admission Diagnosis/Problem Afib, Atrial fibrillation Source of Information: Patient, Family, Provider, RN History Limitations: Reports: No Limitations - History of Present Illness Initial Comments - Free Text/Narative: Patient is an 85yo female with PMH of chronic A-fib who is here tonight because her heart was racing. She normally takes 100mg of metoprolol and 5mg of Eliquis for this. She [place] guests from [place] that came to visit whom she is very excited to see and feels this could have set off her heart racing. In the ER she was given a NS bolus and 3 doses of metoprolol 5mg which did not return her to normal rate, although they did help slightly. Additionally her BP was found to be high in the ER. She also has insomnia and GERD for which she takes melatonin and trazodone and omeprazole respectively. She is otherwise fairly healthy. She denies any CP, SOB, NVD, numbness, tingling, headache, or other symptoms. Onset of Symptoms: Reports: Today Symptom Onset Date: 09/22/20 Duration of Symptoms: Reports: Constant Improves with: Reports: Rest Worsens with: Reports: Movement Associated Symptoms: Reports: No Other Symptoms Middle Chest Pain Score (Numeric/FACES): 2 - Related Data Allergies/Adverse Reactions: Allergies Allergy/AdvReac Type Severity Reaction Status Date / Time Sulfa (Sulfonamide Allergy Stomach Verified 09/22/20 21:27 Antibiotics) Ache Home Medications: Home Meds Metoprolol Succinate [Toprol XL 100mg] 100 mg PO BEDTIME 09/30/17 [History] Apixaban [Eliquis] 5 mg PO DAILY 12/16/18 [History] traZODone HCl [Trazodone HCl] 50 mg PO DAILY 12/16/18 [History] Calcium Carbonate [Oyster Shell Calcium] 500 mg PO DAILY 09/22/20 [History] Melatonin 10 mg PO BEDTIME 09/22/20 [History] Omeprazole 20 mg PO DAILY 09/22/20 [History] estradioL [Estrace 0.01% Vaginal Crm] 1 dose VAG ASDIRECTED 09/22/20 [History] Past Medical History HEENT History: Reports: Cataract, Impaired Vision Cardiovascular History: Reports: Afib, Heart Murmur, High Cholesterol, Hypertension Gastrointestinal History: Reports: Cholelithiasis Genitourinary History: Reports: Other (See Below) Other Genitourinary History: urethitis [employer] History: Reports: Psychiatric History: Reports: Other (See Below) Other Psychiatric History: stress Hematologic History: Reports: Anticoagulation Therapy - Infectious Disease History Infectious Disease History: Reports: Chicken Pox, Measles, Mumps - Past Surgical History Head Surgeries/Procedures: Reports: None HEENT Surgical History: Reports: Cataract Surgery Cardiovascular Surgical History: Reports: None GI Surgical History: Reports: Cholecystectomy Female Surgical History: Reports: Tubal Ligation Dermatological Surgical History: Reports: None Social & Family History - Tobacco Use Tobacco Use Status *Q: Never Tobacco User - Caffeine Use Caffeine Use: Reports: Coffee - Recreational Drug Use Recreational Drug Use: No H&P Review of Systems - Review of Systems: Review Of Systems: See Below General: Denies: Fever, Chills, Malaise, Weakness HEENT: Reports: No Symptoms Pulmonary: Denies: Shortness of Breath, Wheezing, Cough Cardiovascular: Reports: Palpitations. Denies: Chest Pain, Dyspnea on Exertion, Edema, Lightheadedness, Syncope Gastrointestinal: Reports: No Symptoms Genitourinary: Reports: No Symptoms Musculoskeletal: Reports: No Symptoms Skin: Reports: No Symptoms Psychiatric: Reports: No Symptoms Neurological: Reports: No Symptoms Hematologic/Lymphatic: Reports: No Symptoms Immunologic: Reports: No Symptoms Exam - Exam Exam: See Below - Vital Signs Vital Signs: Last Vital Signs Temp 35.8 C L 09/22/20 21:37 Pulse 114 H 09/22/20 22:58 Resp 16 09/22/20 22:42 BP 161/100 H 09/22/20 22:58 Pulse Ox 97 09/22/20 22:42 Weight: 79.3 kg - Exam General: Alert, Oriented, 4 HEENT: PERRLA, Hearing Intact, Mucosa Moist & [place], Nares Patent, Normal Nasal Septum, Posterior Pharynx Clear, Conjunctiva Clear, EOMI, EACs Clear, TMs Clear Neck: Supple, Trachea Midline, 2 Lungs: Clear to Auscultation, Normal Respiratory Effort Cardiovascular: Normal S1, Normal S2, Irregular Rhythm, Tachycardia GI/Abdominal Exam: Normal Bowel Sounds, Soft, Non-Tender, No Organomegaly, No Distention, No Abnormal Bruit, No Mass, Pelvis Stable (Female) Exam: Deferred Rectal (Female) Exam: Deferred Back Exam: Normal Inspection, Full Range of Motion, NT Extremities: Normal Inspection, Normal Range of Motion, Non-Tender, No Pedal Edema, Normal Capillary Refill Skin: Warm, Dry, Intact Neurological: Cranial Nerves Intact, Reflexes Equal Bilateral Neuro Extensive - Mental Status: Alert, Oriented x3, Normal Mood/Affect, Normal Cognition Neuro Extensive - Motor, Sensory, Reflexes: CN II-XII Intact, Normal Gait, Normal Reflexes Psychiatric: Alert, Normal Affect, Normal Mood - Patient Data Lab Results Last 24 hrs: Laboratory Results - last 24 hr 09/22/20 09/22/20 09/22/20 Range/Units 21:53 21:53 22:17 WBC 9.6 (4.5-11.0) K/uL RBC 4.52 (3.30-5.50) M/uL Hgb 14.6 (12.0-15.0) g/dL Hct 43.5 (36.0-48.0) % MCV 96 (80-98) fL MCH 32 H (27-31) pg MCHC 34 (32-36) % Plt Count 217 (150-400) K/uL Neut % (Auto) 82.8 H (36-66) % Lymph % (Auto) 10.5 L (24-44) % [place] % (Auto) 5.9 (2-6) % Eos % (Auto) 0.6 L (2-4) % Baso % (Auto) 0.2 (0-1) % Sodium 135 L (140-148) mmol/L Potassium 3.8 (3.6-5.2) mmol/L Chloride 98 L (100-108) mmol/L Carbon Dioxide 26 (21-32) mmol/L Anion Gap 14.8 H (5.0-14.0) mmol/L BUN 15 (7-18) mg/dL Creatinine 0.9 (0.6-1.0) mg/dL Est Cr Clr Drug Dosing 46.06 mL/min Estimated GFR (MDRD) 60 (>60) Glucose 164 H (74-106) mg/dL Calcium 8.9 (8.5-10.1) mg/dL Troponin I < 0.017 (0.000-0.056) ng/mL Urine Color Yellow (YELLOW) Urine Appearance Clear (CLEAR) Urine pH 7.0 (5.0-8.0) Ur Specific [place] 1.020 (1.008-1.030) Urine Protein 100 H (NEGATIVE) mg/dL Urine Glucose (UA) Negative (NEGATIVE) mg/dL Urine Ketones Trace H (NEGATIVE) mg/dL Urine Occult Blood Trace-intact H (NEGATIVE) Urine Nitrite Negative (NEGATIVE) Urine Bilirubin Negative (NEGATIVE) Urine Urobilinogen 0.2 (0.2-1.0) EU/dL Ur Leukocyte Esterase Negative (NEGATIVE) Urine RBC 0-5 (0-5) Urine WBC 0-5 (0-5) Ur Epithelial Cells Occasional Amorphous Sediment Occasional Urine Bacteria Occasional Urine Mucus Occasional Result Diagrams: 09/22/20 21:53 09/22/20 21:53 Sepsis Event Note - Evaluation Sepsis Screening Result: No Definite Risk - Focused Exam Vital Signs: Vital Signs Temp Pulse Pulse Resp BP BP Pulse Ox 09/22/20 22:58 114 H 161/100 H 09/22/20 22:42 115 H 16 174/90 H 97 09/22/20 22:34 110 H 177/91 H 09/22/20 22:24 103 H 16 177/91 H 94 L 09/22/20 22:19 103 H 12 183/106 H 95 09/22/20 22:00 115 H 201/111 H 09/22/20 21:57 124 H 22 H 201/111 H 94 L 09/22/20 21:37 35.8 C L 119 H 21 H 212/126 H 96 09/22/20 21:36 21 H 96 - Problem List (1) Paroxysmal atrial fibrillation with RVR SNOMED Code(s): 0754744740 ICD Code: I48.0 - PAROXYSMAL ATRIAL FIBRILLATION Status: Acute Priority: High Current Visit: Yes Onset Date: Unknown Problem Details: Will give bolus of .25mg/kg of diltiazem as patient's rate was not improved with metoprolol. If this does not resolve the rate a second dose of 0.35mg/kg (28mg) can be given 15-20mn later. If these do not work, patient may need to be started on a drip which the patient would like to avoid. As the patient is hemodynamically stable at rest I do not feel she warrants ICU admission at this time, but may need to transfer her to the ICU if needed. (2) HTN (hypertension) SNOMED Code(s): 84911715 ICD Code: I10 - ESSENTIAL (PRIMARY) HYPERTENSION Status: Acute Priority: High Current Visit: Yes Problem Details: Patient was given 15mg IV of metoprolol which did not resolve the HTN, will give diltiazem as noted above and if this does not work she may need further interventions. Qualifiers: Hypertension type: primary hypertension Qualified Code(s): I10 - Essential (primary) hypertension (3) GERD (gastroesophageal reflux disease) SNOMED Code(s): 806246197 ICD Code: K21.9 - GASTRO-ESOPHAGEAL REFLUX DISEASE WITHOUT ESOPHAGITIS Status: Acute Current Visit: Yes Problem Details: Will give protonix in caryn ce of patient's omeprazole Qualifiers: Esophagitis presence: esophagitis presence not specified Qualified Code(s): K21.9 - Gastro-esophageal reflux disease without esophagitis (4) Insomnia SNOMED Code(s): 999284037 ICD Code: G47.00 - INSOMNIA, UNSPECIFIED Status: Acute Current Visit: Yes Problem Details: will give patient melatonin and trazodone for sleep. Qualifiers: Insomnia type: primary Qualified Code(s): F51.01 - Primary insomnia Problem List Initiated/Reviewed/Updated: Yes Orders Last 24hrs: Active Orders 24 hr Category Date Time Status Patient Status [ADT] Routine ADT 09/22/20 23:52 Ordered Cardiac Monitoring [RC] CONTINUOUS Care 09/22/20 23:54 Ordered EKG Documentation Completion [RC] ASDIRECTED Care 09/22/20 21:29 Active Oxygen Therapy [RC] PRN Care 09/22/20 23:52 Ordered Pulse Oximetry [RC] CONTINUOUS Care 09/22/20 23:54 Ordered RT Aerosol Therapy [RC] ASDIRECTED Care 09/22/20 23:56 Ordered Up With Assistance [RC] ASDIRECTED Care 09/22/20 23:52 Ordered Up to Chair [RC] QID Care 09/22/20 23:52 Ordered VTE/DVT Education [RC] Per Unit Routine Care 09/22/20 23:52 Ordered Vital Signs [RC] Q4H Care 09/22/20 23:52 Ordered Regular Diet [DIET] Diet 09/22/20 Breakfast Ordered CXR [Chest 2V] [CR] Stat Exams 09/22/20 21:37 Taken COMPREHENSIVE METABOLIC PN,CMP [CHEM] AM Lab 09/23/20 05:11 Ordered Acetaminophen [TylenoL] Med 09/22/20 23:52 Ordered 650 mg PO Q4H PRN Acetaminophen/HYDROcodone [[place] 325-5 MG] Med 09/22/20 23:52 Ordered 1 tab PO Q4H PRN Albuterol/Ipratropium [DuoNeb 3.0-0.5 MG/3 ML] Med 09/22/20 23:52 Ordered 3 ml NEB QID PRN Apixaban [Eliquis] Med 09/23/20 09:00 Ordered 5 mg PO DAILY Diltiazem Med 09/22/20 23:57 Once 20 mg IVPUSH NOW ONE Melatonin Med 09/23/20 21:00 Active 9 mg PO BEDTIME Melatonin Med 09/23/20 00:04 Ordered 9 mg PO BEDTIME PRN Morphine Med 09/22/20 23:52 Ordered 2 mg IVPUSH Q2H PRN Pantoprazole [ProTONIX] Med 09/23/20 09:00 Ordered 40 mg PO DAILY Promethazine [Phenergan] Med 09/22/20 23:52 Ordered 12.5 mg PO Q6H PRN Promethazine [Phenergan] 6.25 mg Med 09/22/20 23:52 Ordered Sodium Chloride 0.9% [Normal Saline] 50 ml IV Q6H Sodium Chloride 0.9% [Normal Saline] 1,000 ml Med 09/22/20 21:45 Active IV ASDIRECTED traZODone Med 09/23/20 00:04 Ordered 50 mg PO ONETIME PRN Resuscitation Status Routine Resus Stat 09/22/20 23:52 Ordered EKG 12 Lead [EK] Stat Ther 09/22/20 21:29 Ordered Medication Orders Acetaminophen (Acetaminophen 325 Mg Tab) 650 mg PO Q4H PRN PRN Reason: Pain (Mild 1-3)/fever Hydrocodone Bitart/Acetaminophen (Acetaminophen/Hydrocodone 325-5 Mg Tab) 1 tab PO Q4H PRN PRN Reason: Pain (moderate 4-6) Albuterol/Ipratropium (Albuterol/Ipratropium 3.0-0.5 Mg/3 Ml Neb Soln) 3 ml NEB QID PRN PRN Reason: Shortness Of Breath/wheezing Diltiazem HCl (Diltiazem 25 Mg/5 Ml Sdv) 20 mg 0.25 mg/kg (20 mg) IVPUSH NOW ONE Stop: 09/22/20 23:58 Sodium Chloride (Normal Saline) 1,000 mls @ 1,000 mls/hr IV ASDIRECTED [facility] Last Admin: 09/22/20 21:49 Dose: 1,000 mls/hr Documented by: MANNIE Promethazine HCl 6.25 mg/ (Sodium Chloride) 50.25 mls @ 200 mls/hr IV Q6H PRN PRN Reason: Nausea/Vomiting Melatonin (Melatonin 3 Mg Tab) 9 mg PO BEDTIME KIRILL Melatonin (Melatonin 3 Mg Tab) 9 mg PO BEDTIME PRN PRN Reason: Insomnia Morphine Sulfate (Morphine 2 Mg/Ml Syringe) 2 mg IVPUSH Q2H PRN PRN Reason: Pain (severe 7-10) Promethazine HCl (Promethazine 25 Mg Tab) 12.5 mg PO Q6H PRN PRN Reason: Nausea able to take PO Trazodone HCl (Trazodone 50 Mg Tab) 50 mg PO ONETIME PRN PRN Reason: Insomnia - Mortality Measure Prognosis:: Good
[2020-09-23] MEDS ORDERED: Diltiazem 25 MG/5 ML SDV IVPUSH ONE (01:01)
[2020-09-23] MEDS: Diltiazem 100 MG in Sodium Chloride 0.9% 100 ML IV SCH ×2 (05:24→14:50)
[2020-09-23] MEDS ORDERED: Pantoprazole 40 MG Tab.CR PO SCH (09:00)
[2020-09-23] MEDS ORDERED: Apixaban 5 MG Tab PO SCH (09:00)
[2020-09-23] MEDS: Apixaban 5 MG Tab PO SCH ×2 (09:04→20:41)
[2020-09-23] MEDS ORDERED: Non-Formulary Medication 1 Each (Estradiol [Estrace 0.01% Vaginal Crm] 42.5 GM Tube) VAG SCH (09:15)
[2020-09-23] MEDS: Pantoprazole 40 MG Tab.CR PO SCH (09:35)
[2020-09-23] MEDS: Acetaminophen 325 MG Tab PO PRN (14:37)
--- NOTE | 2020-09-23 16:07 | PCM.PN ---
- General Info Date of Service: 09/23/20 Admission Dx/Problem (Free Text): Admission Diagnosis/Problem Admission Diagnosis/Problem Afib, Atrial fibrillation, right shoulder pain, weakness Subjective Update: Mrs. Romero was doing well this morning she was still in atrial fibrillation with rapid ventricular response. States that she does have some generalized weakness and mild constipation but no other symptoms. She has been taking her medications and denies missing any doses. She denies any recent illness. She states that in May 3 weeks after getting her second Covid shot she started to get a pain in her right shoulder that radiated across her back and to the left shoulder. She states that this pain wakes her up in the morning around 5 30-6 and lasts around 4 hours. She states that Tylenol and Aleve do not help the pain. During this time she has had weakness in the right arm and also generalized weakness. She denies shortness of breath and paroxysmal nocturnal dyspnea, however she does endorse dyspnea on exertion but says that been ongoing for the past 1-1/2 years. She states she went to her primary care physician for this pain and they thought she had anxiety and depression however they prescribed something for sleep so this may be an inaccurate. They also diagnosed her with an injury to the shoulder she denies ever injuring the should er or shoulder trauma of any kind. She did have a cortisone shot in the right shoulder yesterday and is unsure if it stopped the pain because she does not have it every day and has not had it since the shot but it just happened yesterday. She states that some days she is so fatigued and weak that she would consider herself lethargic. She does note that she has a chronic cardiac murmur, she is on anticoagulation for chronic atrial fibrillation and she is on simvastatin and has been for a long time. Functional Status: Reports: Pain Controlled, Tolerating Diet, Ambulating, Urinating - Review of Systems General: Reports: Weakness, Fatigue, Appetite. Denies: Fever, Chills HEENT: Reports: No Symptoms. Denies: Headaches, Sinus Congestion, Visual Changes Pulmonary: Reports: No Symptoms. Denies: Shortness of Breath, Cough, Sputum, Wheezing Cardiovascular: Reports: Dyspnea on Exertion. Denies: Palpitations, Orthopnea, PND Gastrointestinal: Reports: Constipation. Denies: Abdominal Pain, Diarrhea, Nausea, Vomiting Genitourinary: Reports: No Symptoms. Denies: Dysuria, Frequency, Pain Musculoskeletal: Reports: Shoulder Pain, Back Pain. Denies: Joint Swelling Skin: Reports: No Symptoms. Denies: Rash Neurological: Reports: No Symptoms. Denies: Confusion, Dizziness, Headache, Syncope Psychiatric: Reports: No Symptoms. Denies: Confusion - Patient Data Vitals - Most Recent: Last Vital Signs Temp 97.7 F 09/23/20 14:00 Pulse 81 09/23/20 14:00 Resp 18 09/23/20 14:00 BP 134/62 09/23/20 14:00 Pulse Ox 96 09/23/20 14:00 Weight - Most Recent: 172 lb 6.424 oz I&O - Last 24 Hours: Intake & Output 09/23/20 09/23/20 09/23/20 06:59 14:59 22:59 Output Total 200 Balance -200 Lab Results Last 24 Hours: Laboratory Results - last 24 hr 09/22/20 09/22/20 09/22/20 Range/Units 21:53 21:53 22:17 WBC 9.6 (4.5-11.0) K/uL RBC 4.52 (3.30-5.50) M/uL Hgb 14.6 (12.0-15.0) g/dL Hct 43.5 (36.0-48.0) % MCV 96 (80-98) fL MCH 32 H (27-31) pg MCHC 34 (32-36) % Plt Count 217 (150-400) K/uL Neut % (Auto) 82.8 H (36-66) % Lymph % (Auto) 10.5 L (24-44) % [place] % (Auto) 5.9 (2-6) % Eos % (Auto) 0.6 L (2-4) % Baso % (Auto) 0.2 (0-1) % Sodium 135 L (140-148) mmol/L Potassium 3.8 (3.6-5.2) mmol/L Chloride 98 L (100-108) mmol/L Carbon Dioxide 26 (21-32) mmol/L Anion Gap 14.8 H (5.0-14.0) mmol/L BUN 15 (7-18) mg/dL Creatinine 0.9 (0.6-1.0) mg/dL Est Cr Clr Drug Dosing 46.06 mL/min Estimated GFR (MDRD) 60 (>60) Glucose 164 H (74-106) mg/dL Calcium 8.9 (8.5-10.1) mg/dL Total Bilirubin (0.2-1.0) mg/dL AST (15-37) U/L ALT (12-78) U/L Alkaline Phosphatase (46-116) U/L Troponin I < 0.017 (0.000-0.056) ng/mL Total Protein (6.4-8.2) g/dL Albumin (3.4-5.0) g/dL Globulin (2.3-3.5) g/dL Albumin/Globulin Ratio (1.2-2.2) Urine Color Yellow (YELLOW) Urine Appearance Clear (CLEAR) Urine pH 7.0 (5.0-8.0) Ur Specific Swan 1.020 (1.008-1.030) Urine Protein 100 H (NEGATIVE) mg/dL Urine Glucose (UA) Negative (NEGATIVE) mg/dL Urine Ketones Trace H (NEGATIVE) mg/dL Urine Occult Blood Trace-intact H (NEGATIVE) Urine Nitrite Negative (NEGATIVE) Urine Bilirubin Negative (NEGATIVE) Urine Urobilinogen 0.2 (0.2-1.0) EU/dL Ur Leukocyte Esterase Negative (NEGATIVE) Urine RBC 0-5 (0-5) Urine WBC 0-5 (0-5) Ur Epithelial Cells Occasional Amorphous Sediment Occasional Urine Bacteria Occasional Urine Mucus Occasional 09/23/20 Range/Units 05:25 WBC (4.5-11.0) K/uL RBC (3.30-5.50) M/uL Hgb (12.0-15.0) g/dL Hct (36.0-48.0) % MCV (80-98) fL MCH (27-31) pg MCHC (32-36) % Plt Count (150-400) K/uL Neut % (Auto) (36-66) % Lymph % (Auto) (24-44) % [place] % (Auto) (2-6) % Eos % (Auto) (2-4) % Baso % (Auto) (0-1) % Sodium 139 L (140-148) mmol/L Potassium 3.8 (3.6-5.2) mmol/L Chloride 99 L (100-108) mmol/L Carbon Dioxide 30 (21-32) mmol/L Anion Gap 13.8 (5.0-14.0) mmol/L BUN 13 (7-18) mg/dL Creatinine 0.9 (0.6-1.0) mg/dL Est Cr Clr Drug Dosing 42.62 mL/min Estimated GFR (MDRD) 60 (>60) Glucose 120 H (74-106) mg/dL Calcium 8.8 (8.5-10.1) mg/dL Total Bilirubin 0.8 (0.2-1.0) mg/dL AST 28 (15-37) U/L ALT 23 (12-78) U/L Alkaline Phosphatase 85 (46-116) U/L Troponin I (0.000-0.056) ng/mL Total Protein 6.9 (6.4-8.2) g/dL Albumin 3.3 L (3.4-5.0) g/dL Globulin 3.6 H (2.3-3.5) g/dL Albumin/Globulin Ratio 0.9 L (1.2-2.2) Urine Color (YELLOW) Urine Appearance (CLEAR) Urine pH (5.0-8.0) Ur Specific Swan (1.008-1.030) Urine Protein (NEGATIVE) mg/dL Urine Glucose (UA) (NEGATIVE) mg/dL Urine Ketones (NEGATIVE) mg/dL Urine Occult Blood (NEGATIVE) Urine Nitrite (NEGATIVE) Urine Bilirubin (NEGATIVE) Urine Urobilinogen (0.2-1.0) EU/dL Ur Leukocyte Esterase (NEGATIVE) Urine RBC (0-5) Urine WBC (0-5) Ur Epithelial Cells Amorphous Sediment Urine Bacteria Urine Mucus Med Orders - Current: Current Medications Acetaminophen (Acetaminophen 325 Mg Tab) 650 mg PO Q4H PRN PRN Reason: Pain (Mild 1-3)/fever Last Admin: 09/23/20 14:37 Dose: 650 mg Documented by: Hydrocodone Bitart/Acetaminophen (Acetaminophen/Hydrocodone 325-5 Mg Tab) 1 tab PO Q4H PRN PRN Reason: Pain (moderate 4-6) Albuterol/Ipratropium (Albuterol/Ipratropium 3.0-0.5 Mg/3 Ml Neb Soln) 3 ml NEB QID PRN PRN Reason: Shortness Of Breath/wheezing Apixaban (Apixaban 5 Mg Tab) 5 mg PO BID KIRILL Last Admin: 09/23/20 09:04 Dose: 5 mg Documented by: Sodium Chloride (Normal Saline) 1,000 mls @ 1,000 mls/hr IV ASDIRECTED KIRILL Last Admin: 09/22/20 21:49 Dose: 1,000 mls/hr Documented by: Promethazine HCl 6.25 mg/ (Sodium Chloride) 50.25 mls @ 200 mls/hr IV Q6H PRN PRN Reason: Nausea/Vomiting Diltiazem HCl 100 mg/ Sodium (Chloride) 100 mls @ 5 mls/hr IV TITRATE KIRILL; Protocol Last Admin: 09/23/20 14:50 Dose: 10 mg/hr, 10 mls/hr Documented by: Melatonin (Melatonin 3 Mg Tab) 9 mg PO BEDTIME PRN PRN Reason: Insomnia Metoprolol Succinate (Metoprolol Succinate 50 Mg Tab.Er) 100 mg PO BEDTIME KIRILL Morphine Sulfate (Morphine 2 Mg/Ml Syringe) 2 mg IVPUSH Q2H PRN PRN Reason: Pain (severe 7-10) Last Admin: 09/23/20 14:21 Dose: 2 mg Documented by: Pantoprazole Sodium (Pantoprazole 40 Mg Tab.Cr) 40 mg PO ACBREAKFAST [facility] Last Admin: 09/23/20 09:35 Dose: 40 mg Documented by: Promethazine HCl (Promethazine 25 Mg Tab) 12.5 mg PO Q6H PRN PRN Reason: Nausea able to take PO Trazodone HCl (Trazodone 50 Mg Tab) 50 mg PO BEDTIME KIIRLL Discontinued Medications Diltiazem HCl (Diltiazem 25 Mg/5 Ml Sdv) 20 mg 0.25 mg/kg (20 mg) IVPUSH NOW ONE Stop: 09/22/20 23:58 Last Admin: 09/23/20 00:27 Dose: 20 mg Documented by: Diltiazem HCl (Diltiazem 25 Mg/5 Ml Sdv) 28 mg 0.35 mg/kg (28 mg) IVPUSH NOW ONE Stop: 09/23/20 01:02 Last Admin: 09/23/20 01:29 Dose: 28 mg Documented by: Duloxetine HCl (Duloxetine 20 Mg Cap) 20 mg PO ONETIME ONE Stop: 09/22/20 23:26 Last Admin: 09/22/20 23:57 Dose: 20 mg Documented by: Metoprolol Tartrate 5 mg/ (Sodium Chloride) 55 mls @ 100 mls/hr IV ONETIME ONE Stop: 09/22/20 22:08 Last Admin: 09/22/20 22:17 Dose: Not Given Documented by: Melatonin (Melatonin 3 Mg Tab) 9 mg PO BEDTIME [facility] Last Admin: 09/23/20 01:13 Dose: 9 mg Documented by: Metoprolol Tartrate (Metoprolol Tartrate 5 Mg/5 Ml Sdv) 5 mg IVPUSH ONETIME ONE Stop: 09/22/20 21:55 Last Admin: 09/22/20 22:00 Dose: 5 mg Documented by: Metoprolol Tartrate (Metoprolol Tartrate 5 Mg/5 Ml Sdv) 5 mg IVPUSH ONETIME ONE Stop: 09/22/20 22:29 Last Admin: 09/22/20 22:34 Dose: 5 mg Documented by: Metoprolol Tartrate (Metoprolol Tartrate 5 Mg/5 Ml Sdv) 5 mg IVPUSH ONETIME ONE Stop: 09/22/20 22:47 Last Admin: 09/22/20 22:58 Dose: 5 mg Documented by: Non-Formulary Medication (Estradiol [Estrace 0.01% Vaginal Crm]) 1 dose VAG ASDIRECTED [facility] Pantoprazole Sodium (Pantoprazole 40 Mg Tab.Cr) 40 mg PO DAILY@0730 [facility] Last Admin: 09/23/20 09:04 Dose: 40 mg Documented by: Trazodone HCl (Trazodone 50 Mg Tab) 50 mg PO ONETIME ONE Stop: 09/22/20 23:27 Last Admin: 09/22/20 23:57 Dose: 50 mg Documented by: Trazodone HCl (Trazodone 50 Mg Tab) 50 mg PO ONETIME PRN PRN Reason: Insomnia Last Admin: 09/23/20 01:14 Dose: 50 mg Documented by: - Exam General: Alert, Oriented, Cooperative, No Acute Distress HEENT: Pupils Equal, EOMI, Mucous Membr. Moist/[place] Neck: Supple, Trachea Midline Lungs: Clear to Auscultation, Normal Respiratory Effort Cardiovascular: Irregular Rhythm, Tachycardia, Murmurs GI/Abdominal Exam: Normal Bowel Sounds, Soft, Non-Tender, No Distention Back Exam: Normal Inspection Extremities: Normal Inspection, Non-Tender, No Pedal Edema Skin: Warm, Dry, Intact Neurological: No New Focal Deficit Psy/Mental Status: Alert, Normal Affect, Normal Mood - Patient Data Lab Results Last 24 hrs: Laboratory Results - last 24 hr 09/22/20 09/22/20 09/22/20 Range/Units 21:53 21:53 22:17 WBC 9.6 (4.5-11.0) K/uL RBC 4.52 (3.30-5.50) M/uL Hgb 14.6 (12.0-15.0) g/dL Hct 43.5 (36.0-48.0) % MCV 96 (80-98) fL MCH 32 H (27-31) pg MCHC 34 (32-36) % Plt Count 217 (150-400) K/uL Neut % (Auto) 82.8 H (36-66) % Lymph % (Auto) 10.5 L (24-44) % [place] % (Auto) 5.9 (2-6) % Eos % (Auto) 0.6 L (2-4) % Baso % (Auto) 0.2 (0-1) % Sodium 135 L (140-148) mmol/L Potassium 3.8 (3.6-5.2) mmol/L Chloride 98 L (100-108) mmol/L Carbon Dioxide 26 (21-32) mmol/L Anion Gap 14.8 H (5.0-14.0) mmol/L BUN 15 (7-18) mg/dL Creatinine 0.9 (0.6-1.0) mg/dL Est Cr Clr Drug Dosing 46.06 mL/min Estimated GFR (MDRD) 60 (>60) Glucose 164 H (74-106) mg/dL Calcium 8.9 (8.5-10.1) mg/dL Total Bilirubin (0.2-1.0) mg/dL AST (15-37) U/L ALT (12-78) U/L Alkaline Phosphatase (46-116) U/L Troponin I < 0.017 (0.000-0.056) ng/mL Total Protein (6.4-8.2) g/dL Albumin (3.4-5.0) g/dL Globulin (2.3-3.5) g/dL Albumin/Globulin Ratio (1.2-2.2) Urine Color Yellow (YELLOW) Urine Appearance Clear (CLEAR) Urine pH 7.0 (5.0-8.0) Ur Specific Swan 1.020 (1.008-1.030) Urine Protein 100 H (NEGATIVE) mg/dL Urine Glucose (UA) Negative (NEGATIVE) mg/dL Urine Ketones Trace H (NEGATIVE) mg/dL Urine Occult Blood Trace-intact H (NEGATIVE) Urine Nitrite Negative (NEGATIVE) Urine Bilirubin Negative (NEGATIVE) Urine Urobilinogen 0.2 (0.2-1.0) EU/dL Ur Leukocyte Esterase Negative (NEGATIVE) Urine RBC 0-5 (0-5) Urine WBC 0-5 (0-5) Ur Epithelial Cells Occasional Amorphous Sediment Occasional Urine Bacteria Occasional Urine Mucus Occasional 09/23/20 Range/Units 05:25 WBC (4.5-11.0) K/uL RBC (3.30-5.50) M/uL Hgb (12.0-15.0) g/dL Hct (36.0-48.0) % MCV (80-98) fL MCH (27-31) pg MCHC (32-36) % Plt Count (150-400) K/uL Neut % (Auto) (36-66) % Lymph % (Auto) (24-44) % [place] % (Auto) (2-6) % Eos % (Auto) (2-4) % Baso % (Auto) (0-1) % Sodium 139 L (140-148) mmol/L Potassium 3.8 (3.6-5.2) mmol/L Chloride 99 L (100-108) mmol/L Carbon Dioxide 30 (21-32) mmol/L Anion Gap 13.8 (5.0-14.0) mmol/L BUN 13 (7-18) mg/dL Creatinine 0.9 (0.6-1.0) mg/dL Est Cr Clr Drug Dosing 42.62 mL/min Estimated GFR (MDRD) 60 (>60) Glucose 120 H (74-106) mg/dL Calcium 8.8 (8.5-10.1) mg/dL Total Bilirubin 0.8 (0.2-1.0) mg/dL AST 28 (15-37) U/L ALT 23 (12-78) U/L Alkaline Phosphatase 85 (46-116) U/L Troponin I (0.000-0.056) ng/mL Total Protein 6.9 (6.4-8.2) g/dL Albumin 3.3 L (3.4-5.0) g/dL Globulin 3.6 H (2.3-3.5) g/dL Albumin/Globulin Ratio 0.9 L (1.2-2.2) Urine Color (YELLOW) Urine Appearance (CLEAR) Urine pH (5.0-8.0) Ur Specific Swan (1.008-1.030) Urine Protein (NEGATIVE) mg/dL Urine Glucose (UA) (NEGATIVE) mg/dL Urine Ketones (NEGATIVE) mg/dL Urine Occult Blood (NEGATIVE) Urine Nitrite (NEGATIVE) Urine Bilirubin (NEGATIVE) Urine Urobilinogen (0.2-1.0) EU/dL Ur Leukocyte Esterase (NEGATIVE) Urine RBC (0-5) Urine WBC (0-5) Ur Epithelial Cells Amorphous Sediment Urine Bacteria Urine Mucus Result Diagrams: 09/22/20 21:53 09/23/20 05:25 Sepsis Event Note - Evaluation Sepsis Screening Result: No Definite Risk - Focused Exam Vital Signs: Vital Signs Temp Pulse Resp BP Pulse Ox 09/23/20 14:00 97.7 F 81 18 134/62 96 09/23/20 10:00 72 23 H 123/69 94 L 09/23/20 06:00 15 119/82 96 09/23/20 05:00 15 154/93 H 96 - Problem List & Annotations (1) Right shoulder pain SNOMED Code(s): 10422495, 79624851 Code(s): M25.511 - PAIN IN RIGHT SHOULDER Status: Acute Current Visit: Yes (2) Atrial flutter with rapid ventricular response SNOMED Code(s): 8438525, 4880861 Code(s): I48.92 - UNSPECIFIED ATRIAL FLUTTER Status: Acute Current Visit: Yes - Problem List Review Problem List Initiated/Reviewed/Updated: Yes - My Orders Last 24 Hours: My Active Orders 09/23/20 10:00 Pantoprazole [ProTONIX] 40 mg PO ACBREAKFAST 09/23/20 15:58 EKG Stress [EK] Routine 09/23/20 21:00 Metoprolol Succinate [Toprol XL] 100 mg PO BEDTIME traZODone 50 mg PO BEDTIME 09/25/20 Breakfast Nothing Per Oral Diet [DIET] - Plan Plan:: Atrial fibrillation with rapid ventricular response on chronic anticoagulation with warfarin -Continue home dose of warfarin with alternating 5 and 7.5 -Currently on a diltiazem drip until under control and then will switch to her oral home medications Right shoulder pain with radiation to the back and left shoulder-concern for unstable angina (wakes her up from sleep, has at rest) -The pain wakes her up in the morning, is not relieved by Tylenol or Aleve, associated with generalized weakness and right arm weakness, as well as days of "lethargy" -I have concerns that this may represent a stable angina therefore I have ordered a stress test for Friday, she will need to be n.p.o. after midnight and take no medications or caffeine -Will need to reevaluate if we cannot get her rate controlled before that time -Can continue hydrocodone for the pain if it occurs, however I will be adding a sublingual nitro to be given, if it is given then I will evaluate if it helped with the pain Essential hypertension -Takes 100 mg metoprolol for A. fib and hypertension, will resume once diltiazem drip is no longer needed GERD without esophagitis -Continue Protonix, takes omeprazole at home Questionable insomnia versus depression and anxiety -She stated to me that her issues with sleep are due to waking up to pain in the shoulder with radiation to the back, I am concerned that this is nothing related to insomnia or mental health disorder and more so related to either a shoulder issue or a heart issue -Continue trazodone and melatonin for sleep Plan: Continue on diltiazem drip until rate controlled and then switch to oral medications. We will still be using metoprolol 100 mg home dose. May need to add additional medications. Stress test planned for Friday. Grisel Wallis,
[2020-09-23] MEDS ORDERED: Nitroglycerin 0.4 MG Tab.SL SL SCH (16:30)
[2020-09-23] MEDS: Nitroglycerin 0.4 MG Tab.SL SL PRN (19:21)
[2020-09-23] MEDS ORDERED: Sodium Chloride 0.9% 500 ML IV ONE (19:58)
[2020-09-23] MEDS: traZODone 50 MG Tab PO SCH (20:41)
[2020-09-23] MEDS: Metoprolol Succinate 50 MG Tab.ER PO SCH (20:41)
[2020-09-23] MEDS ORDERED: Melatonin 3 MG Tab PO SCH (21:00)
[2020-09-23] MEDS: Melatonin 3 MG Tab PO PRN (21:51)
[2020-09-24] MEDS: Diltiazem 100 MG in Sodium Chloride 0.9% 100 ML IV SCH (00:36)
[2020-09-24] MEDS: Acetaminophen 325 MG Tab PO PRN (00:39)
[2020-09-24] MEDS: Pantoprazole 40 MG Tab.CR PO SCH (07:58)
[2020-09-24] MEDS: Apixaban 5 MG Tab PO SCH ×2 (07:59→20:31)
[2020-09-24] MEDS ORDERED: Magnesium Oxide 400 MG Tab PO ONE (09:00)
[2020-09-24] MEDS ORDERED: Diltiazem 120 MG Cap.CD PO SCH (09:30)
[2020-09-24] MEDS ORDERED: Diltiazem 120 MG Cap.CD PO ONE (13:27)
--- NOTE | 2020-09-24 19:32 | PCM.PN ---
- General Info Date of Service: 09/24/20 Admission Dx/Problem (Free Text): Admission Diagnosis/Problem Admission Diagnosis/Problem Afib, Atrial fibrillation, right shoulder pain, weakness Subjective Update: Ms. Romero had her diltiazem drip stopped today as her heart rate was under control and she was transitioned to oral dosage. The calculated oral dose would have been 330, I initially started her on 240 which was inadequate and increased to 360 which did control her rate. She did need magnesium replacement today. She had no events overnight, and was having no complaints today. I did talk with her father, daughter, and sister today regarding the plans for her stress test and what would happen with given results of that. Functional Status: Reports: Tolerating Diet, Ambulating, Urinating - Review of Systems General: Reports: No Symptoms HEENT: Reports: No Symptoms Pulmonary: Reports: No Symptoms Cardiovascular: Reports: No Symptoms Gastrointestinal: Reports: No Symptoms Genitourinary: Reports: No Symptoms Musculoskeletal: Reports: No Symptoms Skin: Reports: No Symptoms Neurological: Reports: No Symptoms Psychiatric: Reports: No Symptoms - Patient Data Vitals - Most Recent: Last Vital Signs Temp 97.6 F 09/24/20 15:36 Pulse 79 09/24/20 16:48 Resp 17 09/24/20 15:36 BP 154/91 H 09/24/20 15:36 Pulse Ox 97 09/24/20 15:36 Weight - Most Recent: 172 lb 6.424 oz I&O - Last 24 Hours: Intake & Output 09/24/20 09/24/20 09/24/20 06:59 14:59 22:59 Intake Total 1276 322 720 Output Total 800 1250 Balance 476 322 -530 Lab Results Last 24 Hours: Laboratory Results - last 24 hr 09/24/20 09/24/20 Range/Units 05:21 05:21 WBC 10.9 (4.5-11.0) K/uL RBC 4.39 (3.30-5.50) M/uL Hgb 14.2 (12.0-15.0) g/dL Hct 42.8 (36.0-48.0) % MCV 98 (80-98) fL MCH 32 H (27-31) pg MCHC 33 (32-36) % Plt Count 228 (150-400) K/uL Sodium 135 L (140-148) mmol/L Potassium 3.7 (3.6-5.2) mmol/L Chloride 99 L (100-108) mmol/L Carbon Dioxide 27 (21-32) mmol/L Anion Gap 12.7 (5.0-14.0) mmol/L BUN 18 (7-18) mg/dL Creatinine 0.8 (0.6-1.0) mg/dL Est Cr Clr Drug Dosing 47.95 mL/min Estimated GFR (MDRD) > 60 (>60) Glucose 136 H (74-106) mg/dL Calcium 8.4 L (8.5-10.1) mg/dL Phosphorus 3.4 (2.5-4.9) mg/dL Magnesium 1.6 L (1.8-2.4) mg/dL Med Orders - Current: Current Medications Acetaminophen (Acetaminophen 325 Mg Tab) 650 mg PO Q4H PRN PRN Reason: Pain (Mild 1-3)/fever Last Admin: 09/24/20 00:39 Dose: 650 mg Documented by: Hydrocodone Bitart/Acetaminophen (Acetaminophen/Hydrocodone 325-5 Mg Tab) 1 tab PO Q4H PRN PRN Reason: Pain (moderate 4-6) Albuterol/Ipratropium (Albuterol/Ipratropium 3.0-0.5 Mg/3 Ml Neb Soln) 3 ml NEB QID PRN PRN Reason: Shortness Of Breath/wheezing Apixaban (Apixaban 5 Mg Tab) 5 mg PO BID [facility] Last Admin: 09/24/20 07:59 Dose: 5 mg Documented by: Diltiazem HCl (Diltiazem 180 Mg Cap.Cd) 360 mg PO DAILY [facility] Promethazine HCl 6.25 mg/ (Sodium Chloride) 50.25 mls @ 200 mls/hr IV Q6H PRN PRN Reason: Nausea/Vomiting Diltiazem HCl 100 mg/ Sodium (Chloride) 100 mls @ 5 mls/hr IV TITRATE [facility]; Protocol Last Admin: 09/24/20 00:36 Dose: 10 mg/hr, 10 mls/hr Documented by: Sodium Chloride (Normal Saline) 500 mls @ 15 mls/hr IV ASDIRECTED ONE Stop: 09/25/20 05:17 Last Admin: 09/23/20 20:41 Dose: 15 mls/hr Documented by: Melatonin (Melatonin 3 Mg Tab) 9 mg PO BEDTIME PRN PRN Reason: Insomnia Last Admin: 09/23/20 21:51 Dose: 9 mg Documented by: Metoprolol Succinate (Metoprolol Succinate 50 Mg Tab.Er) 100 mg PO BEDTIME [facility] Last Admin: 09/23/20 20:41 Dose: 100 mg Documented by: Morphine Sulfate (Morphine 2 Mg/Ml Syringe) 2 mg IVPUSH Q2H PRN PRN Reason: Pain (severe 7-10) Last Admin: 09/23/20 14:21 Dose: 2 mg Documented by: Nitroglycerin (Nitroglycerin 0.4 Mg Tab.Sl) 0.4 mg SL Q5M PRN PRN Reason: Shoulder pain Last Admin: 09/23/20 19:21 Dose: 0.4 mg Documented by: Pantoprazole Sodium (Pantoprazole 40 Mg Tab.Cr) 40 mg PO ACBREAKFAST [facility] Last Admin: 09/24/20 07:58 Dose: 40 mg Documented by: Promethazine HCl (Promethazine 25 Mg Tab) 12.5 mg PO Q6H PRN PRN Reason: Nausea able to take PO Trazodone HCl (Trazodone 50 Mg Tab) 50 mg PO BEDTIME [facility] Last Admin: 09/23/20 20:41 Dose: 50 mg Documented by: Discontinued Medications Diltiazem HCl (Diltiazem 25 Mg/5 Ml Sdv) 20 mg 0.25 mg/kg (20 mg) IVPUSH NOW ONE Stop: 09/22/20 23:58 Last Admin: 09/23/20 00:27 Dose: 20 mg Documented by: Diltiazem HCl (Diltiazem 25 Mg/5 Ml Sdv) 28 mg 0.35 mg/kg (28 mg) IVPUSH NOW ONE Stop: 09/23/20 01:02 Last Admin: 09/23/20 01:29 Dose: 28 mg Documented by: Diltiazem HCl (Diltiazem 120 Mg Cap.Cd) 240 mg PO DAILY [facility] Last Admin: 09/24/20 09:40 Dose: 240 mg Documented by: Diltiazem HCl (Diltiazem 120 Mg Cap.Cd) 120 mg PO ONETIME ONE Stop: 09/24/20 13:28 Last Admin: 09/24/20 13:47 Dose: 120 mg Documented by: Duloxetine HCl (Duloxetine 20 Mg Cap) 20 mg PO ONETIME ONE Stop: 09/22/20 23:26 Last Admin: 09/22/20 23:57 Dose: 20 mg Documented by: Metoprolol Tartrate 5 mg/ (Sodium Chloride) 55 mls @ 100 mls/hr IV ONETIME ONE Stop: 09/22/20 22:08 Last Admin: 09/22/20 22:17 Dose: Not Given Documented by: Sodium Chloride (Normal Saline) 1,000 mls @ 1,000 mls/hr IV ASDIRECTED [facility] Last Admin: 09/22/20 21:49 Dose: 1,000 mls/hr Documented by: Magnesium Oxide (Magnesium Oxide 400 Mg Tab) 400 mg PO ONETIME ONE Stop: 09/24/20 09:01 Last Admin: 09/24/20 08:54 Dose: 400 mg Documented by: Melatonin (Melatonin 3 Mg Tab) 9 mg PO BEDTIME [facility] Last Admin: 09/23/20 01:13 Dose: 9 mg Documented by: Metoprolol Tartrate (Metoprolol Tartrate 5 Mg/5 Ml Sdv) 5 mg IVPUSH ONETIME ONE Stop: 09/22/20 21:55 Last Admin: 09/22/20 22:00 Dose: 5 mg Documented by: Metoprolol Tartrate (Metoprolol Tartrate 5 Mg/5 Ml Sdv) 5 mg IVPUSH ONETIME ONE Stop: 09/22/20 22:29 Last Admin: 09/22/20 22:34 Dose: 5 mg Documented by: Metoprolol Tartrate (Metoprolol Tartrate 5 Mg/5 Ml Sdv) 5 mg IVPUSH ONETIME ONE Stop: 09/22/20 22:47 Last Admin: 09/22/20 22:58 Dose: 5 mg Documented by: Nitroglycerin (Nitroglycerin 0.4 Mg Tab.Sl) 0.4 mg SL Q5M [facility] Non-Formulary Medication (Estradiol [Estrace 0.01% Vaginal Crm]) 1 dose VAG ASDIRECTED [facility] Pantoprazole Sodium (Pantoprazole 40 Mg Tab.Cr) 40 mg PO DAILY@0730 [facility] Last Admin: 09/23/20 09:04 Dose: 40 mg Documented by: Trazodone HCl (Trazodone 50 Mg Tab) 50 mg PO ONETIME ONE Stop: 09/22/20 23:27 Last Admin: 09/22/20 23:57 Dose: 50 mg Documented by: Trazodone HCl (Trazodone 50 Mg Tab) 50 mg PO ONETIME PRN PRN Reason: Insomnia Last Admin: 09/23/20 01:14 Dose: 50 mg Documented by: - Exam Quality Assessment: No: Supplemental Oxygen, Central Line/PICC, Urine Catheter, DVT Prophylaxis, Skin Breakdown, Restraints General: Alert, Oriented, Cooperative, No Acute Distress HEENT: Pupils Equal, EOMI, Mucous Membr. Moist/[place] Neck: Supple, Trachea Midline Lungs: Clear to Auscultation, Normal Respiratory Effort Cardiovascular: Regular Rate, Regular Rhythm GI/Abdominal Exam: Normal Bowel Sounds, Soft, Non-Tender, No Distention Extremities: Normal Inspection, Non-Tender, No Pedal Edema Skin: Warm, Dry, Intact Neurological: No New Focal Deficit Psy/Mental Status: Alert, Normal Affect, Normal Mood - Patient Data Lab Results Last 24 hrs: Laboratory Results - last 24 hr 09/24/20 09/24/20 Range/Units 05:21 05:21 WBC 10.9 (4.5-11.0) K/uL RBC 4.39 (3.30-5.50) M/uL Hgb 14.2 (12.0-15.0) g/dL Hct 42.8 (36.0-48.0) % MCV 98 (80-98) fL MCH 32 H (27-31) pg MCHC 33 (32-36) % Plt Count 228 (150-400) K/uL Sodium 135 L (140-148) mmol/L Potassium 3.7 (3.6-5.2) mmol/L Chloride 99 L (100-108) mmol/L Carbon Dioxide 27 (21-32) mmol/L Anion Gap 12.7 (5.0-14.0) mmol/L BUN 18 (7-18) mg/dL Creatinine 0.8 (0.6-1.0) mg/dL Est Cr Clr Drug Dosing 47.95 mL/min Estimated GFR (MDRD) > 60 (>60) Glucose 136 H (74-106) mg/dL Calcium 8.4 L (8.5-10.1) mg/dL Phosphorus 3.4 (2.5-4.9) mg/dL Magnesium 1.6 L (1.8-2.4) mg/dL Result Diagrams: 09/24/20 05:21 09/24/20 05:21 Sepsis Event Note - Evaluation Sepsis Screening Result: No Definite Risk - Focused Exam Vital Signs: Vital Signs Temp Pulse Pulse Resp BP BP Pulse Ox 09/24/20 16:48 79 09/24/20 15:36 97.6 F 91 17 154/91 H 97 09/24/20 14:00 91 20 154/91 H 96 09/24/20 13:47 92 142/83 H 09/24/20 12:00 86 13 136/73 97 09/24/20 10:00 72 20 134/54 L 97 09/24/20 09:40 79 140/64 09/24/20 09:00 97.5 F 66 18 140/64 95 09/24/20 08:00 72 20 145/66 H 95 - Problem List & Annotations (1) Atrial flutter with rapid ventricular response SNOMED Code(s): 9240106, 4387335 Code(s): I48.92 - UNSPECIFIED ATRIAL FLUTTER Status: Acute Current Visit: Yes (2) Unstable angina SNOMED Code(s): 7712443, 455358904 Code(s): I20.0 - UNSTABLE ANGINA Status: Acute Current Visit: Yes - Problem List Review Problem List Initiated/Reviewed/Updated: Yes - My Orders Last 24 Hours: My Active Orders 09/23/20 19:58 Sodium Chloride 0.9% [Normal Saline] 500 ml IV ASDIRECTED 09/23/20 21:00 Metoprolol Succinate [Toprol XL] 100 mg PO BEDTIME traZODone 50 mg PO BEDTIME 09/25/20 Breakfast Nothing Per Oral Diet [DIET] Myocardial Perf Spect Multi [NM] Routine 09/25/20 09:00 Diltiazem [Cardizem CD] 360 mg PO DAILY - Plan Plan:: Atrial fibrillation with rapid ventricular response on chronic anticoagulation with warfarin -Continue Eliquis 5 mg -Diltiazem extended release 360 mg daily Unstable angina -The pain is in the right shoulder and radiates across the back to the left shoulder, wakes her up in the morning, is not relieved by Tylenol or Aleve, associated with generalized weakness and right arm weakness, as well as days of "lethargy" -She was given nitrofurantoin after having the pain yesterday evening and it very quickly took the pain away Essential hypertension -Takes 100 mg metoprolol for A. fib and hypertension, will resume once diltiazem drip is no longer needed GERD without esophagitis -Continue Protonix, takes omeprazole at home Questionable insomnia versus depression and anxiety -She stated to me that her issues with sleep are due to waking up to pain in the shoulder with radiation to the back, I am concerned that this is nothing related to insomnia or mental health disorder and more so related to either a shoulder issue or a heart issue -Continue trazodone and melatonin for sleep VTE prophylaxis: On Eliquis GI prophylaxis: Protonix Diet: Heart healthy diet CODE STATUS: Full code Plan: She has a chemical stress test on Friday. I did explain to her and her , sister, and daughter that if the stress test was positive she would need to have a cardiac cath. 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 Grisel Wallis, DO
[2020-09-24] MEDS: traZODone 50 MG Tab PO SCH (20:31)
[2020-09-24] MEDS: Metoprolol Succinate 50 MG Tab.ER PO SCH (20:31)
[2020-09-24] MEDS: Melatonin 3 MG Tab PO PRN (20:31)
[2020-09-24] MEDS: Nitroglycerin 0.4 MG Tab.SL SL PRN (23:54)
[2020-09-25] MEDS ORDERED: Metoprolol Tartrate 5 MG/5 ML SDV IVPUSH ONE (00:42)
[2020-09-25] MEDS: Pantoprazole 40 MG Tab.CR PO SCH (07:17)
[2020-09-25] MEDS: Diltiazem 180 MG Cap.CD PO SCH ×2 (07:18→08:32)
[2020-09-25] MEDS: Apixaban 5 MG Tab PO SCH ×2 (09:13→20:48)
--- NOTE | 2020-09-25 09:29 | CR ---
CHEST: 2 view CLINICAL HISTORY:Chest pain and pressure COMPARISON:None FINDINGS: The heart is enlarged. Pulmonary vascularity is normal. There are atherosclerotic changes in the aorta. No infiltrate effusion or pneumothorax seen. Lungs are mildly hyperaerated. IMPRESSION: Cardiomegaly No acute cardiopulmonary process Mild emphysema changes
--- NOTE | 2020-09-25 15:10 | CRLNM ---
For Patients: As a result of the Century Cures Act, medical imaging exams and procedure reports are released immediately into your electronic medical record. You may view this report before your referring provider. If you have questions, please contact your health care provider. MYOCARDIAL PERFUSION SCAN, 09/25/2020 CLINICAL HISTORY: 85-year-old female. Atrial fibrillation. Right shoulder pain. 5 feet 5 inches, 172 pounds. TECHNIQUE: (Resting SPECT and Stress Gated SPECT with wall motion and ejection fraction) Stress: Pharmacologic - Lexiscan (0.4 mg) (IV) Dose (Stress/Rest): 28.5 mCi / 10.0 mCi Tc-99m Tetrofosmin Comparison: None FINDINGS: There is good uptake of activity by the left ventricle. No left ventricular enlargement is noted. There is mild soft tissue attenuation. No other significant fixed or reversible defects are identified. The gated images demonstrate a normal left ventricular ejection fraction of 57 percent. No regional wall motion abnormalities are identified. IMPRESSION: 1)There is no evidence of significant myocardial ischemia or infarction. 2)Normal left ventricular ejection fraction of 57 percent. ERNESTO LOPEZ M.D. Transcribed: 1:19 p.m. [email or web address] by: Ernesto Lopez MD @ 09/25/2020 12:27:00 PM (Electronically Signed)
--- NOTE | 2020-09-25 16:01 | PCM.PN ---
- General Info Date of Service: 09/25/20 Subjective Update: Ms. Romero difficulty with recurrent tachycardia last night, resolved with a one- time dose of IV metoprolol. She has had ongoing difficulty with shoulder pain, improved last week after she received a steroid injection. It did bother her more during the night and there has been some question as to whether this could represent anginal equivalent. Lexiscan Myoview study was performed today and is negative for any evidence of active ischemia. Functional Status: Reports: Tolerating Diet, Ambulating, Urinating - Review of Systems General: Reports: No Symptoms Pulmonary: Reports: No Symptoms Cardiovascular: Reports: No Symptoms Gastrointestinal: Reports: No Symptoms Genitourinary: Reports: No Symptoms - Patient Data Vitals - Most Recent: Last Vital Signs Temp 97.8 F 09/25/20 06:00 Pulse 78 09/25/20 15:00 Resp 15 09/25/20 15:00 BP 133/65 09/25/20 15:00 Pulse Ox 96 09/25/20 15:00 Weight - Most Recent: 172 lb 6.424 oz I&O - Last 24 Hours: Intake & Output 09/25/20 09/25/20 09/25/20 06:59 14:59 22:59 Intake Total 400 Output Total 700 700 Balance -700 -300 Lab Results Last 24 Hours: Laboratory Results - last 24 hr 09/24/20 09/24/20 Range/Units 23:26 23:26 Urine Color Yellow Cancelled (YELLOW) Urine Appearance Cloudy A Cancelled (CLEAR) Urine pH 6.5 Cancelled (5.0-8.0) Ur Specific Roberts 1.010 Cancelled (1.008-1.030) Urine Protein Trace H Cancelled (NEGATIVE) mg/dL Urine Glucose (UA) Negative Cancelled (NEGATIVE) mg/dL Urine Ketones Negative Cancelled (NEGATIVE) mg/dL Urine Occult Blood Small H Cancelled (NEGATIVE) Urine Nitrite Negative Cancelled (NEGATIVE) Urine Bilirubin Negative Cancelled (NEGATIVE) Urine Urobilinogen 0.2 Cancelled (0.2-1.0) EU/dL Ur Leukocyte Esterase Large H Cancelled (NEGATIVE) Urine RBC 0-5 Cancelled (0-5) Urine WBC >100 H Cancelled (0-5) Ur Epithelial Cells Few Cancelled Amorphous Sediment Not seen Cancelled Urine Bacteria Moderate Cancelled Urine Mucus Not seen Cancelled Urine Other Cancelled Urinalysis Comment Cancelled Med Orders - Current: Current Medications Acetaminophen (Acetaminophen 325 Mg Tab) 650 mg PO Q4H PRN PRN Reason: Pain (Mild 1-3)/fever Last Admin: 09/24/20 00:39 Dose: 650 mg Documented by: Hydrocodone Bitart/Acetaminophen (Acetaminophen/Hydrocodone 325-5 Mg Tab) 1 tab PO Q4H PRN PRN Reason: Pain (moderate 4-6) Last Admin: 09/25/20 00:23 Dose: 1 tab Documented by: Albuterol/Ipratropium (Albuterol/Ipratropium 3.0-0.5 Mg/3 Ml Neb Soln) 3 ml NEB QID PRN PRN Reason: Shortness Of Breath/wheezing Apixaban (Apixaban 5 Mg Tab) 5 mg PO BID [facility] Last Admin: 09/25/20 09:13 Dose: 5 mg Documented by: Diltiazem HCl (Diltiazem 180 Mg Cap.Cd) 360 mg PO DAILY [facility] Last Admin: 09/25/20 08:32 Dose: Not Given Documented by: Promethazine HCl 6.25 mg/ (Sodium Chloride) 50.25 mls @ 200 mls/hr IV Q6H PRN PRN Reason: Nausea/Vomiting Diltiazem HCl 100 mg/ Sodium (Chloride) 100 mls @ 5 mls/hr IV TITRATE [facility]; Protocol Last Admin: 09/24/20 00:36 Dose: 10 mg/hr, 10 mls/hr Documented by: Melatonin (Melatonin 3 Mg Tab) 9 mg PO BEDTIME PRN PRN Reason: Insomnia Last Admin: 09/24/20 20:31 Dose: 9 mg Documented by: Metoprolol Succinate (Metoprolol Succinate 50 Mg Tab.Er) 100 mg PO BEDTIME [facility] Last Admin: 09/24/20 20:31 Dose: 100 mg Documented by: Morphine Sulfate (Morphine 2 Mg/Ml Syringe) 2 mg IVPUSH Q2H PRN PRN Reason: Pain (severe 7-10) Last Admin: 09/23/20 14:21 Dose: 2 mg Documented by: Nitroglycerin (Nitroglycerin 0.4 Mg Tab.Sl) 0.4 mg SL Q5M PRN PRN Reason: Shoulder pain Last Admin: 09/24/20 23:54 Dose: 0.4 mg Documented by: Pantoprazole Sodium (Pantoprazole 40 Mg Tab.Cr) 40 mg PO ACBREAKFAST [facility] Last Admin: 09/25/20 07:17 Dose: 40 mg Documented by: Promethazine HCl (Promethazine 25 Mg Tab) 12.5 mg PO Q6H PRN PRN Reason: Nausea able to take PO Trazodone HCl (Trazodone 50 Mg Tab) 50 mg PO BEDTIME [facility] Last Admin: 09/24/20 20:31 Dose: 50 mg Documented by: Discontinued Medications Diltiazem HCl (Diltiazem 25 Mg/5 Ml Sdv) 20 mg 0.25 mg/kg (20 mg) IVPUSH NOW ONE Stop: 09/22/20 23:58 Last Admin: 09/23/20 00:27 Dose: 20 mg Documented by: Diltiazem HCl (Diltiazem 25 Mg/5 Ml Sdv) 28 mg 0.35 mg/kg (28 mg) IVPUSH NOW O NE Stop: 09/23/20 01:02 Last Admin: 09/23/20 01:29 Dose: 28 mg Documented by: Diltiazem HCl (Diltiazem 120 Mg Cap.Cd) 240 mg PO DAILY [facility] Last Admin: 09/24/20 09:40 Dose: 240 mg Documented by: Diltiazem HCl (Diltiazem 120 Mg Cap.Cd) 120 mg PO ONETIME ONE Stop: 09/24/20 13:28 Last Admin: 09/24/20 13:47 Dose: 120 mg Documented by: Duloxetine HCl (Duloxetine 20 Mg Cap) 20 mg PO ONETIME ONE Stop: 09/22/20 23:26 Last Admin: 09/22/20 23:57 Dose: 20 mg Documented by: Metoprolol Tartrate 5 mg/ (Sodium Chloride) 55 mls @ 100 mls/hr IV ONETIME ONE Stop: 09/22/20 22:08 Last Admin: 09/22/20 22:17 Dose: Not Given Documented by: Sodium Chloride (Normal Saline) 1,000 mls @ 1,000 mls/hr IV ASDIRECTED [facility] Last Admin: 09/22/20 21:49 Dose: 1,000 mls/hr Documented by: Sodium Chloride (Normal Saline) 500 mls @ 15 mls/hr IV ASDIRECTED ONE Stop: 09/25/20 05:17 Last Admin: 09/23/20 20:41 Dose: 15 mls/hr Documented by: Magnesium Oxide (Magnesium Oxide 400 Mg Tab) 400 mg PO ONETIME ONE Stop: 09/24/20 09:01 Last Admin: 09/24/20 08:54 Dose: 400 mg Documented by: Melatonin (Melatonin 3 Mg Tab) 9 mg PO BEDTIME [facility] Last Admin: 09/23/20 01:13 Dose: 9 mg Documented by: Metoprolol Tartrate (Metoprolol Tartrate 5 Mg/5 Ml Sdv) 5 mg IVPUSH ONETIME ONE Stop: 09/22/20 21:55 Last Admin: 09/22/20 22:00 Dose: 5 mg Documented by: Metoprolol Tartrate (Metoprolol Tartrate 5 Mg/5 Ml Sdv) 5 mg IVPUSH ONETIME ONE Stop: 09/22/20 22:29 Last Admin: 09/22/20 22:34 Dose: 5 mg Documented by: Metoprolol Tartrate (Metoprolol Tartrate 5 Mg/5 Ml Sdv) 5 mg IVPUSH ONETIME ONE Stop: 09/22/20 22:47 Last Admin: 09/22/20 22:58 Dose: 5 mg Documented by: Metoprolol Tartrate (Metoprolol Tartrate 5 Mg/5 Ml Sdv) 5 mg IVPUSH ONETIME ONE Stop: 09/25/20 00:43 Last Admin: 09/25/20 01:01 Dose: 5 mg Documented by: Nitroglycerin (Nitroglycerin 0.4 Mg Tab.Sl) 0.4 mg SL Q5M [facility] Non-Formulary Medication (Estradiol [Estrace 0.01% Vaginal Crm]) 1 dose VAG ASDIRECTED [facility] Pantoprazole Sodium (Pantoprazole 40 Mg Tab.Cr) 40 mg PO DAILY@0730 [facility] Last Admin: 09/23/20 09:04 Dose: 40 mg Documented by: Regadenoson (Regadenoson 0.4 Mg/5 Ml Syringe) 0.4 mg IVPUSH ONETIME ONE Stop: 09/25/20 08:31 Last Admin: 09/25/20 08:52 Dose: 0.4 mg Documented by: Trazodone HCl (Trazodone 50 Mg Tab) 50 mg PO ONETIME ONE Stop: 09/22/20 23:27 Last Admin: 09/22/20 23:57 Dose: 50 mg Documented by: Trazodone HCl (Trazodone 50 Mg Tab) 50 mg PO ONETIME PRN PRN Reason: Insomnia Last Admin: 09/23/20 01:14 Dose: 50 mg Documented by: - Exam General: Alert, Oriented, Cooperative, No Acute Distress Lungs: Clear to Auscultation, Normal Respiratory Effort Cardiovascular: Regular Rate, Irregular Rhythm, Murmurs GI/Abdominal Exam: Soft, Non-Tender, No Organomegaly, No Distention Extremities: Non-Tender, No Pedal Edema - Patient Data Lab Results Last 24 hrs: Laboratory Results - last 24 hr 09/24/20 09/24/20 Range/Units 23:26 23:26 Urine Color Yellow Cancelled (YELLOW) Urine Appearance Cloudy A Cancelled (CLEAR) Urine pH 6.5 Cancelled (5.0-8.0) Ur Specific Roberts 1.010 Cancelled (1.008-1.030) Urine Protein Trace H Cancelled (NEGATIVE) mg/dL Urine Glucose (UA) Negative Cancelled (NEGATIVE) mg/dL Urine Ketones Negative Cancelled (NEGATIVE) mg/dL Urine Occult Blood Small H Cancelled (NEGATIVE) Urine Nitrite Negative Cancelled (NEGATIVE) Urine Bilirubin Negative Cancelled (NEGATIVE) Urine Urobilinogen 0.2 Cancelled (0.2-1.0) EU/dL Ur Leukocyte Esterase Large H Cancelled (NEGATIVE) Urine RBC 0-5 Cancelled (0-5) Urine WBC >100 H Cancelled (0-5) Ur Epithelial Cells Few Cancelled Amorphous Sediment Not seen Cancelled Urine Bacteria Moderate Cancelled Urine Mucus Not seen Cancelled Urine Other Cancelled Urinalysis Comment Cancelled Result Diagrams: 09/24/20 05:21 09/24/20 05:21 Sepsis Event Note - Evaluation Sepsis Screening Result: No Definite Risk - Focused Exam Vital Signs: Vital Signs Temp Pulse Resp BP Pulse Ox 09/25/20 15:00 78 15 133/65 96 09/25/20 13:00 81 12 138/71 96 09/25/20 11:00 79 13 137/72 95 09/25/20 09:22 106 H 25 H 125/67 09/25/20 08:47 61 16 179/77 H 09/25/20 08:00 71 146/78 H 09/25/20 06:00 97.8 F 13 161/76 H 95 09/25/20 04:00 86 19 142/75 H 94 L - Problem List Review Problem List Initiated/Reviewed/Updated: Yes - Plan Plan:: Assessment and plan Atrial fibrillation with rapid ventricular response on chronic anticoagulation with warfarin -Continue Eliquis 5 mg -Diltiazem extended release 360 mg daily -Metoprolol 100 mg daily Right shoulder pain-likely secondary to underlying joint disease. Lexiscan Myov iew study obtained today showing no evidence of ischemia Essential hypertension -Takes 100 mg metoprolol for A. fib and hypertension GERD without esophagitis -Continue Protonix, takes omeprazole at home Questionable insomnia versus depression and anxiety -Continue trazodone and melatonin for sleep VTE prophylaxis: On Eliquis GI prophylaxis: Protonix Diet: Heart healthy diet CODE STATUS: Full code
--- NOTE | 2020-09-25 16:49 | STRESS ---
DATE OF SERVICE: 09/25/2020 PROCEDURE PERFORMED: Lexiscan portion of the Lexiscan Myoview study. TECHNIQUE: Ms. Romero was infused with usual dose of Lexiscan followed by the Myoview infusion given per protocol. She was noted to be in atrial fibrillation. Did report slight headache. Symptoms resolved spontaneously and did not require use of reversal medication. Resting ECG; atrial fibrillation, rate of 88. There is delayed R-wave progression noted in the precordial leads. Normal axis and intervals. Similar findings were seen on the posthyperventilation and standing ECGs. She did develop some mild inferolateral ST-segment depression with use of Lexiscan. She had no symptoms of chest pain or pressure. No recurrence of her shoulder pain. IMPRESSION: Unremarkable Lexiscan portion of the Lexiscan Myoview study. Interpretation of the Myoview portion of the study is pending at this time. Felix Chavira MD /[id number]
[2020-09-25] MEDS: Metoprolol Succinate 50 MG Tab.ER PO SCH (20:48)
[2020-09-25] MEDS: traZODone 50 MG Tab PO SCH (20:49)
[2020-09-25] MEDS: Melatonin 3 MG Tab PO PRN (20:50)
[2020-09-26] MEDS: Pantoprazole 40 MG Tab.CR PO SCH (07:25)
[2020-09-26] MEDS: Diltiazem 180 MG Cap.CD PO SCH (08:16)
[2020-09-26] MEDS: Apixaban 5 MG Tab PO SCH ×2 (08:16→21:14)
[2020-09-26] MEDS: Nitroglycerin 0.4 MG Tab.SL SL PRN (09:23)
--- NOTE | 2020-09-26 13:20 | PCM.PN ---
- General Info Date of Service: 09/26/20 Subjective Update: Ms. Romero has continued to experience episodes of increased heart rate associated with her atrial fibrillation. 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 Control improves late morning early afternoon when it appears that her diltiazem begins to have an effect. She is otherwise been feeling well although can tell when her heart rate is higher. She has been walking in the hallways now this afternoon without signif icant difficulty and fairly good rate control. Functional Status: Reports: Tolerating Diet, Ambulating, Urinating - Review of Systems General: Reports: No Symptoms Pulmonary: Reports: No Symptoms Cardiovascular: Reports: Palpitations. Denies: Chest Pain, Dyspnea on Exertion, Orthopnea, PND, Edema, Lightheadedness Gastrointestinal: Reports: No Symptoms - Patient Data Vitals - Most Recent: Last Vital Signs Temp 98.1 F 09/26/20 13:00 Pulse 112 H 09/26/20 05:00 Resp 22 H 09/26/20 13:00 BP 122/59 L 09/26/20 13:00 Pulse Ox 95 09/26/20 13:00 Weight - Most Recent: 172 lb 6.424 oz I&O - Last 24 Hours: Intake & Output 09/25/20 09/26/20 09/26/20 22:59 06:59 14:59 Intake Total 1200 360 Balance 1200 360 Med Orders - Current: Current Medications Acetaminophen (Acetaminophen 325 Mg Tab) 650 mg PO Q4H PRN PRN Reason: Pain (Mild 1-3)/fever Last Admin: 09/24/20 00:39 Dose: 650 mg Documented by: Hydrocodone Bitart/Acetaminophen (Acetaminophen/Hydrocodone 325-5 Mg Tab) 1 tab PO Q4H PRN PRN Reason: Pain (moderate 4-6) Last Admin: 09/25/20 00:23 Dose: 1 tab Documented by: Albuterol/Ipratropium (Albuterol/Ipratropium 3.0-0.5 Mg/3 Ml Neb Soln) 3 ml NEB QID PRN PRN Reason: Shortness Of Breath/wheezing Apixaban (Apixaban 5 Mg Tab) 5 mg PO BID [facility] Last Admin: 09/26/20 08:16 Dose: 5 mg Documented by: Diltiazem HCl (Diltiazem 180 Mg Cap.Cd) 360 mg PO DAILY [facility] Last Admin: 09/26/20 08:16 Dose: 360 mg Documented by: Promethazine HCl 6.25 mg/ (Sodium Chloride) 50.25 mls @ 200 mls/hr IV Q6H PRN PRN Reason: Nausea/Vomiting Melatonin (Melatonin 3 Mg Tab) 9 mg PO BEDTIME PRN PRN Reason: Insomnia Last Admin: 09/25/20 20:50 Dose: 9 mg Documented by: Metoprolol Succinate (Metoprolol Succinate 50 Mg Tab.Er) 200 mg PO BEDTIME [facility] Morphine Sulfate (Morphine 2 Mg/Ml Syringe) 2 mg IVPUSH Q2H PRN PRN Reason: Pain (severe 7-10) Last Admin: 09/23/20 14:21 Dose: 2 mg Documented by: Nitroglycerin (Nitroglycerin 0.4 Mg Tab.Sl) 0.4 mg SL Q5M PRN PRN Reason: Shoulder pain Last Admin: 09/26/20 09:23 Dose: 0.4 mg Documented by: Pantoprazole Sodium (Pantoprazole 40 Mg Tab.Cr) 40 mg PO ACBREAKFAST [facility] Last Admin: 09/26/20 07:25 Dose: 40 mg Documented by: Promethazine HCl (Promethazine 25 Mg Tab) 12.5 mg PO Q6H PRN PRN Reason: Nausea able to take PO Trazodone HCl (Trazodone 50 Mg Tab) 50 mg PO BEDTIME [facility] Last Admin: 09/25/20 20:49 Dose: 50 mg Documented by: Discontinued Medications Diltiazem HCl (Diltiazem 25 Mg/5 Ml Sdv) 20 mg 0.25 mg/kg (20 mg) IVPUSH NOW ONE Stop: 09/22/20 23:58 Last Admin: 09/23/20 00:27 Dose: 20 mg Documented by: Diltiazem HCl (Diltiazem 25 Mg/5 Ml Sdv) 28 mg 0.35 mg/kg (28 mg) IVPUSH NOW ONE Stop: 09/23/20 01:02 Last Admin: 09/23/20 01:29 Dose: 28 mg Documented by: Diltiazem HCl (Diltiazem 120 Mg Cap.Cd) 240 mg PO DAILY [facility] Last Admin: 09/24/20 09:40 Dose: 240 mg Documented by: Diltiazem HCl (Diltiazem 120 Mg Cap.Cd) 120 mg PO ONETIME ONE Stop: 09/24/20 13:28 Last Admin: 09/24/20 13:47 Dose: 120 mg Documented by: Duloxetine HCl (Duloxetine 20 Mg Cap) 20 mg PO ONETIME ONE Stop: 09/22/20 23:26 Last Admin: 09/22/20 23:57 Dose: 20 mg Documented by: Metoprolol Tartrate 5 mg/ (Sodium Chloride) 55 mls @ 100 mls/hr IV ONETIME ONE Stop: 09/22/20 22:08 Last Admin: 09/22/20 22:17 Dose: Not Given Documented by: Sodium Chloride (Normal Saline) 1,000 mls @ 1,000 mls/hr IV ASDIRECTED [facility] Last Admin: 09/22/20 21:49 Dose: 1,000 mls/hr Documented by: Diltiazem HCl 100 mg/ Sodium (Chloride) 100 mls @ 5 mls/hr IV TITRATE [facility]; Protocol Last Admin: 09/24/20 00:36 Dose: 10 mg/hr, 10 mls/hr Documented by: Sodium Chloride (Normal Saline) 500 mls @ 15 mls/hr IV ASDIRECTED ONE Stop: 09/25/20 05:17 Last Admin: 09/23/20 20:41 Dose: 15 mls/hr Documented by: Magnesium Oxide (Magnesium Oxide 400 Mg Tab) 400 mg PO ONETIME ONE Stop: 09/24/20 09:01 Last Admin: 09/24/20 08:54 Dose: 400 mg Documented by: Melatonin (Melatonin 3 Mg Tab) 9 mg PO BEDTIME [facility] Last Admin: 09/23/20 01:13 Dose: 9 mg Documented by: Metoprolol Succinate (Metoprolol Succinate 50 Mg Tab.Er) 100 mg PO BEDTIME [facility] Last Admin: 09/25/20 20:48 Dose: 100 mg Documented by: Metoprolol Tartrate (Metoprolol Tartrate 5 Mg/5 Ml Sdv) 5 mg IVPUSH ONETIME ONE Stop: 09/22/20 21:55 Last Admin: 09/22/20 22:00 Dose: 5 mg Documented by: Metoprolol Tartrate (Metoprolol Tartrate 5 Mg/5 Ml Sdv) 5 mg IVPUSH ONETIME ONE Stop: 09/22/20 22:29 Last Admin: 09/22/20 22:34 Dose: 5 mg Documented by: Metoprolol Tartrate (Metoprolol Tartrate 5 Mg/5 Ml Sdv) 5 mg IVPUSH ONETIME ONE Stop: 09/22/20 22:47 Last Admin: 09/22/20 22:58 Dose: 5 mg Documented by: Metoprolol Tartrate (Metoprolol Tartrate 5 Mg/5 Ml Sdv) 5 mg IVPUSH ONETIME ONE Stop: 09/25/20 00:43 Last Admin: 09/25/20 01:01 Dose: 5 mg Documented by: Nitroglycerin (Nitroglycerin 0.4 Mg Tab.Sl) 0.4 mg SL Q5M [facility] Non-Formulary Medication (Estradiol [Estrace 0.01% Vaginal Crm]) 1 dose VAG ASDIRECTED [facility] Pantoprazole Sodium (Pantoprazole 40 Mg Tab.Cr) 40 mg PO DAILY@0730 [facility] Last Admin: 09/23/20 09:04 Dose: 40 mg Documented by: Regadenoson (Regadenoson 0.4 Mg/5 Ml Syringe) 0.4 mg IVPUSH ONETIME ONE Stop: 09/25/20 08:31 Last Admin: 09/25/20 08:52 Dose: 0.4 mg Documented by: Trazodone HCl (Trazodone 50 Mg Tab) 50 mg PO ONETIME ONE Stop: 09/22/20 23:27 Last Admin: 09/22/20 23:57 Dose: 50 mg Documented by: Trazodone HCl (Trazodone 50 Mg Tab) 50 mg PO ONETIME PRN PRN Reason: Insomnia Last Admin: 09/23/20 01:14 Dose: 50 mg Documented by: - Exam General: Alert, Oriented, Cooperative, Mild Distress Lungs: Clear to Auscultation, Normal Respiratory Effort Cardiovascular: Regular Rate, No Murmurs, Irregular Rhythm GI/Abdominal Exam: Soft, Non-Tender, No Organomegaly, No Distention Extremities: Non-Tender, No Pedal Edema - Patient Data Result Diagrams: 09/24/20 05:21 09/24/20 05:21 Sepsis Event Note - Evaluation Sepsis Screening Result: No Definite Risk - Focused Exam Vital Signs: Vital Signs Temp Pulse Resp BP BP Pulse Ox 09/26/20 13:00 98.1 F 22 H 122/59 L 95 09/26/20 11:00 97.8 F 18 130/69 96 09/26/20 09:23 126/84 09/26/20 09:00 22 H 126/84 98 09/26/20 07:00 98.6 F 20 132/96 H 98 09/26/20 05:00 112 H 19 151/85 H 97 09/26/20 03:00 98.8 F 45 L 15 98/37 L 94 L - Problem List Review Problem List Initiated/Reviewed/Updated: Yes - My Orders Last 24 Hours: My Active Orders 09/26/20 Breakfast Heart Healthy Diet [DIET] 09/26/20 21:00 Metoprolol Succinate [Toprol XL] 200 mg PO BEDTIME - Plan Plan:: Assessment and plan Atrial fibrillation with rapid ventricular response-during the afternoon and flako arsenio heart rate control has been good. Heart rates are higher early to mid morning. -Continue Eliquis 5 mg -Diltiazem extended release 360 mg daily -Metoprolol XL increase to 200 mg daily in the evening Right shoulder pain-likely secondary to underlying joint disease. Lexiscan Myoview study shows no evidence of ischemia Essential hypertension-blood pressure control has been adequate on current medications -Continue to monitor closely with medication adjustments GERD without esophagitis -Continue Protonix, takes omeprazole at home Questionable insomnia versus depression and anxiety -Continue trazodone and melatonin for sleep VTE prophylaxis: On Eliquis GI prophylaxis: Protonix Diet: Heart healthy diet CODE STATUS: Full code
[2020-09-26] MEDS ORDERED: Metoprolol Succinate 50 MG Tab.ER PO SCH (21:00)
[2020-09-26] MEDS: Melatonin 3 MG Tab PO PRN (21:13)
[2020-09-26] MEDS: traZODone 50 MG Tab PO SCH (21:14)
[2020-09-27] MEDS: Acetaminophen 325 MG Tab PO PRN (01:59)
[2020-09-27] MEDS: Pantoprazole 40 MG Tab.CR PO SCH (07:39)
[2020-09-27] MEDS: Diltiazem 180 MG Cap.CD PO SCH (08:20)
[2020-09-27] MEDS: Apixaban 5 MG Tab PO SCH (08:20)
--- NOTE | 2020-09-27 09:38 | PCM.DCSUM1 ---
Discharge Summary - Hospital Course Brief History: Ms. Romero is an 85-year-old woman who was admitted through the emergency department with lightheadedness and weakness secondary to rapid heart rate and underlying atrial fibrillation with rapid ventricular response. - Discharge Data Discharge Date: 09/27/20 Discharge Disposition: Home, Self-Care 01 Condition: Stable - Referral to Home Health Primary Care Physician: Brisa Diana PA-C - Discharge Diagnosis/Problem(s) (1) Right shoulder pain SNOMED Code(s): 74362178, 28974008 ICD Code: M25.511 - PAIN IN RIGHT SHOULDER Status: Acute Current Visit: Yes (2) Paroxysmal atrial fibrillation with RVR SNOMED Code(s): 8566956651 ICD Code: I48.0 - PAROXYSMAL ATRIAL FIBRILLATION Status: Acute Priority: High Current Visit: Yes Onset Date: Unknown Problem Details: Will give bolus of .25mg/kg of diltiazem as patient's rate was not improved with metoprolol. If this does not resolve the rate a second dose of 0.35mg/kg (28mg) can be given 15-20mn later. If these do not work, patient may need to be started on a drip which the patient would like to avoid. As the patient is hemodynamically stable at rest I do not feel she warrants ICU admission at this time, but may need to transfer her to the ICU if needed. (3) RICHAR (generalized anxiety disorder) SNOMED Code(s): 32305721 ICD Code: F41.1 - GENERALIZED ANXIETY DISORDER Status: Chronic Current Visit: No - Patient Summary/Data Hospital Course: Ms. Romero is an 85yo female with PMH of paroxysmal A-fib who is here tonight because her heart was racing. She normally takes 100mg of metoprolol and 5mg of Eliquis for this. She [place] from [place] of [place] that came to visit whom she i s very excited to see and feels this could have set off her heart racing. In the ER she was given a NS bolus and 3 doses of metoprolol 5mg which did not return her to normal rate, although they did help slightly. Additionally her BP was found to be high in the ER. She also has insomnia and GERD for which she takes melatonin and trazodone and omeprazole respectively. She is otherwise fairly healthy. She denies any CP, SOB, NVD, numbness, tingling, headache, or other symptoms. She was started on IV diltiazem bolus and infusion which did result in good control of her atrial fibrillation rate. She was then transitioned to oral diltiazem 360 mg of the long-acting form once daily. She was continued on her usual dose of metoprolol as well as Eliquis. She reported symptoms of right shoulder pain that radiated across her back to the left shoulder and also into the neck. The symptoms occurred in the morning and there was concern that this may represent an anginal equivalent. Lexiscan Myoview study was obtained and showed no evidence of significant ischemia. Despite combined use of diltiazem and metoprolol heart rate remained elevated especially during the morning hours. Her dose of metoprolol was increased to 200 mg daily and this did result in good control of her heart rate without significant bradycardia or hypotension. She will remain on the Eliquis after discharge as well as the increased dose of metoprolol and diltiazem 360 mg daily. Follow-up appointment will be scheduled with her primary care provider within 1 week. 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 Activity will be as tolerated and she will be on a low sodium diet. - Patient Instructions Diet: Low Sodium Activity: As Tolerated - Discharge Plan *PRESCRIPTION DRUG MONITORING PROGRAM REVIEWED*: Not Applicable *COPY OF PRESCRIPTION DRUG MONITORING REPORT IN PATIENT JACK: Not Applicable Prescriptions/Med Rec: Diltiazem HCl [Diltiazem 24Hr ER] 360 mg PO DAILY #30 cap.er.24h Metoprolol Succinate 200 mg PO BEDTIME #30 tab.er.24h Home Medications: Home Meds Apixaban [Eliquis] 5 mg PO BID 12/16/18 [History] traZODone HCl [Trazodone HCl] 50 mg PO DAILY 12/16/18 [History] Calcium Carbonate [Oyster Shell Calcium] 500 mg PO DAILY 09/22/20 [History] Melatonin 10 mg PO BEDTIME 09/22/20 [History] Omeprazole 20 mg PO DAILY 09/22/20 [History] estradioL [Estrace 0.01% Vaginal Crm] 1 dose VAG ASDIRECTED 09/22/20 [History] Diltiazem HCl [Diltiazem 24Hr ER] 360 mg PO DAILY #30 cap.er.24h 09/27/20 [Rx] Metoprolol Succinate 200 mg PO BEDTIME #30 tab.er.24h 09/27/20 [Rx] Referrals: Brisa Diana PA-C [Primary Care Provider] - 10/02/20 (Keep previously scheduled appointment on October 02.) - Discharge Summary/Plan Comment DC Time >30 min.: No - Patient Data Vitals - Most Recent: Last Vital Signs Temp 98.2 F 09/27/20 08:00 Pulse 77 09/26/20 21:14 Resp 19 09/27/20 08:00 BP 149/80 H 09/27/20 08:00 Pulse Ox 96 09/27/20 08:00 Weight - Most Recent: 172 lb 6.424 oz I&O - Last 24 hours: Intake & Output 09/26/20 09/27/20 09/27/20 22:59 06:59 14:59 Intake Total 1500 300 Balance 1500 300 Med Orders - Current: Current Medications Acetaminophen (Acetaminophen 325 Mg Tab) 650 mg PO Q4H PRN PRN Reason: Pain (Mild 1-3)/fever Last Admin: 09/27/20 01:59 Dose: 650 mg Documented by: Hydrocodone Bitart/Acetaminophen (Acetaminophen/Hydrocodone 325-5 Mg Tab) 1 tab PO Q4H PRN PRN Reason: Pain (moderate 4-6) Last Admin: 09/25/20 00:23 Dose: 1 tab Documented by: Albuterol/Ipratropium (Albuterol/Ipratropium 3.0-0.5 Mg/3 Ml Neb Soln) 3 ml NEB QID PRN PRN Reason: Shortness Of Breath/wheezing Apixaban (Apixaban 5 Mg Tab) 5 mg PO BID [facility] Last Admin: 09/27/20 08:20 Dose: 5 mg Documented by: Diltiazem HCl (Diltiazem 180 Mg Cap.Cd) 360 mg PO DAILY [facility] Last Admin: 09/27/20 08:20 Dose: 360 mg Documented by: Promethazine HCl 6.25 mg/ (Sodium Chloride) 50.25 mls @ 200 mls/hr IV Q6H PRN PRN Reason: Nausea/Vomiting Melatonin (Melatonin 3 Mg Tab) 9 mg PO BEDTIME PRN PRN Reason: Insomnia Last Admin: 09/26/20 21:13 Dose: 9 mg Documented by: Metoprolol Succinate (Metoprolol Succinate 50 Mg Tab.Er) 200 mg PO BEDTIME [facility] Last Admin: 09/26/20 21:14 Dose: 200 mg Documented by: Morphine Sulfate (Morphine 2 Mg/Ml Syringe) 2 mg IVPUSH Q2H PRN PRN Reason: Pain (severe 7-10) Last Admin: 09/23/20 14:21 Dose: 2 mg Documented by: Nitroglycerin (Nitroglycerin 0.4 Mg Tab.Sl) 0.4 mg SL Q5M PRN PRN Reason: Shoulder pain Last Admin: 09/26/20 09:23 Dose: 0.4 mg Documented by: Pantoprazole Sodium (Pantoprazole 40 Mg Tab.Cr) 40 mg PO ACBREAKFAST [facility] Last Admin: 09/27/20 07:39 Dose: 40 mg Documented by: Promethazine HCl (Promethazine 25 Mg Tab) 12.5 mg PO Q6H PRN PRN Reason: Nausea able to take PO Trazodone HCl (Trazodone 50 Mg Tab) 50 mg PO BEDTIME [facility] Last Admin: 09/26/20 21:14 Dose: 50 mg Documented by: Discontinued Medications Diltiazem HCl (Diltiazem 25 Mg/5 Ml Sdv) 20 mg 0.25 mg/kg (20 mg) IVPUSH NOW ONE Stop: 09/22/20 23:58 Last Admin: 09/23/20 00:27 Dose: 20 mg Documented by: Diltiazem HCl (Diltiazem 25 Mg/5 Ml Sdv) 28 mg 0.35 mg/kg (28 mg) IVPUSH NOW ONE Stop: 09/23/20 01:02 Last Admin: 09/23/20 01:29 Dose: 28 mg Documented by: Diltiazem HCl (Diltiazem 120 Mg Cap.Cd) 240 mg PO DAILY [facility] Last Admin: 09/24/20 09:40 Dose: 240 mg Documented by: Diltiazem HCl (Diltiazem 120 Mg Cap.Cd) 120 mg PO ONETIME ONE Stop: 09/24/20 13:28 Last Admin: 09/24/20 13:47 Dose: 120 mg Documented by: Duloxetine HCl (Duloxetine 20 Mg Cap) 20 mg PO ONETIME ONE Stop: 09/22/20 23:26 Last Admin: 09/22/20 23:57 Dose: 20 mg Documented by: Metoprolol Tartrate 5 mg/ (Sodium Chloride) 55 mls @ 100 mls/hr IV ONETIME ONE Stop: 09/22/20 22:08 Last Admin: 09/22/20 22:17 Dose: Not Given Documented by: Sodium Chloride (Normal Saline) 1,000 mls @ 1,000 mls/hr IV ASDIRECTED [facility] Last Admin: 09/22/20 21:49 Dose: 1,000 mls/hr Documented by: Diltiazem HCl 100 mg/ Sodium (Chloride) 100 mls @ 5 mls/hr IV TITRATE [facility]; Protocol Last Admin: 09/24/20 00:36 Dose: 10 mg/hr, 10 mls/hr Documented by: Sodium Chloride (Normal Saline) 500 mls @ 15 mls/hr IV ASDIRECTED ONE Stop: 09/25/20 05:17 Last Admin: 09/23/20 20:41 Dose: 15 mls/hr Documented by: Magnesium Oxide (Magnesium Oxide 400 Mg Tab) 400 mg PO ONETIME ONE Stop: 09/24/20 09:01 Last Admin: 09/24/20 08:54 Dose: 400 mg Documented by: Melatonin (Melatonin 3 Mg Tab) 9 mg PO BEDTIME [facility] Last Admin: 09/23/20 01:13 Dose: 9 mg Documented by: Metoprolol Succinate (Metoprolol Succinate 50 Mg Tab.Er) 100 mg PO BEDTIME [facility] Last Admin: 09/25/20 20:48 Dose: 100 mg Documented by: Metoprolol Tartrate (Metoprolol Tartrate 5 Mg/5 Ml Sdv) 5 mg IVPUSH ONETIME ONE Stop: 09/22/20 21:55 Last Admin: 09/22/20 22:00 Dose: 5 mg Documented by: Metoprolol Tartrate (Metoprolol Tartrate 5 Mg/5 Ml Sdv) 5 mg IVPUSH ONETIME ONE Stop: 09/22/20 22:29 Last Admin: 09/22/20 22:34 Dose: 5 mg Documented by: Metoprolol Tartrate (Metoprolol Tartrate 5 Mg/5 Ml Sdv) 5 mg IVPUSH ONETIME ONE Stop: 09/22/20 22:47 Last Admin: 09/22/20 22:58 Dose: 5 mg Documented by: Metoprolol Tartrate (Metoprolol Tartrate 5 Mg/5 Ml Sdv) 5 mg IVPUSH ONETIME ONE Stop: 09/25/20 00:43 Last Admin: 09/25/20 01:01 Dose: 5 mg Documented by: Nitroglycerin (Nitroglycerin 0.4 Mg Tab.Sl) 0.4 mg SL Q5M [facility] Non-Formulary Medication (Estradiol [Estrace 0.01% Vaginal Crm]) 1 dose VAG ASDIRECTED [facility] Pantoprazole Sodium (Pantoprazole 40 Mg Tab.Cr) 40 mg PO DAILY@729 [facility] Last Admin: 09/23/20 09:04 Dose: 40 mg Documented by: Regadenoson (Regadenoson 0.4 Mg/5 Ml Syringe) 0.4 mg IVPUSH ONETIME ONE Stop: 09/25/20 08:31 Last Admin: 09/25/20 08:52 Dose: 0.4 mg Documented by: Trazodone HCl (Trazodone 50 Mg Tab) 50 mg PO ONETIME ONE Stop: 09/22/20 23:27 Last Admin: 09/22/20 23:57 Dose: 50 mg Documented by: Trazodone HCl (Trazodone 50 Mg Tab) 50 mg PO ONETIME PRN PRN Reason: Insomnia Last Admin: 09/23/20 01:14 Dose: 50 mg Documented by: - Exam General: Reports: Alert, Oriented, Cooperative, No Acute Distress Lungs: Reports: Clear to Auscultation, Normal Respiratory Effort Cardiovascular: Reports: Regular Rate, No Murmurs, Irregular Rhythm GI/Abdominal Exam: Soft, Non-Tender, No Organomegaly, No Distention Extremities: Non-Tender, No Pedal Edema
== END 2020-09-27 10:33 | disposition home or self-care (01) | DRG 309 ==
LOC: JP.ED 20:59 → JP.ICU 23:52
PROVIDERS: ADMIT Family Medicine; ATTEND Hospitalist
DX: I48.91 Unspecified atrial fibrillation (principal); I48.0 Paroxysmal atrial fibrillation; E78.00 Pure hypercholesterolemia, unspecified; I20.0 Unstable angina; Z73.3 Stress, not elsewhere classified; Z88.2 Allergy status to sulfonamides; M25.511 Pain in right shoulder; Z79.899 Other long term (current) drug therapy; F41.1 Generalized anxiety disorder; K21.9 Gastro-esophageal reflux disease without esophagitis; E78.5 Hyperlipidemia, unspecified; I10 Essential (primary) hypertension; H54.7 Unspecified visual loss; F51.01 Primary insomnia; Z90.49 Acquired absence of other specified parts of digestive tract; Z98.42 Cataract extraction status, left eye; Z98.41 Cataract extraction status, right eye; Z98.51 Tubal ligation status; Z79.01 Long term (current) use of anticoagulants
CPT/HCPCS: 36415; 71046 ×2; 80048; 81001; 84484; 85025; 93005; 96374; 96376; 99285; J3490 ×3; J7030; 78452; 80053; 83735; 84100; 85027; 93017; 93018; A9270-GY; A9500; J2270; J2785; J7040